=== PATIENT | female | born 1970 | race African-American/Black ===

== ENCOUNTER 2016-08-18 14:25 | Inpatient (IN) | payer OTHER ==
[2016-08-18 18:07] VITALS: BMI 27.4
--- NOTE | 2016-08-18 19:52 | HP ---
COWS - Scale Resting Pulse: 0= NE 80 or Below Sweatin=Flushed/Facial Moisture Restless Observation: 3= Extraneous Movement Pupil Size: 2= Moderately Dilated Bone or Joint Aches: 2= Severe Diffuse Aches Runny Nose/ Eye Tearin= Runny Nose/Eyes GI Upset > 30mins: 3= Vomiting/Diarrhea Tremor Observation: 2= Slight Tremor Visible Yawning Observation: 2= >3x During Session Anxiety or Irritability: 2=Irritable/Anxious Goose Flesh Skin: 0=Smooth Skin COWS Score: 20 CIWA Score - CIWA Score Nausea/Vomitin Muscle Tremors: 3 Anxiety: 3 Agitation: 3 Paroxysmal Sweats: 2 Orientation: 0-Oriented Tacttile Disturbances: 2-Mild Itch/Numbness/Burn Auditory Disturbances: 2-Mild Harshness/Frighten Visual Disturbances: 2-Mild Sensitivity Headache: 2-Mild CIWA-Ar Total Score: 22 Admission ROS BHS - HPI Chief Complaint: I NEED HELP TO STOP USING HEROIN,ALCOHOL,COCAINE AND MARIJUANA Allergies/Adverse Reactions: Allergies Allergy/AdvReac Type Severity Reaction Status Date / Time No Known Allergies Allergy Verified 08/18/16 19:12 History of Present Illness: THIS 46 YEARS OLD FEMALE WITH HEROIN,ALCOHOL,COCAINE AND MARIJUANA DEPENDENCE, WITHDRAWAL SYMPTOM.,LAST DETOX 06/01/15 TO 06/06/15 NICOTINE DEPENDENCE WEIGHT LOSS PTSD LONGEST PERIOD OF SOBRIETY 5 YEARS Exam Limitations: No Limitations - Ebola screening Have you traveled outside of the country in the last 21 days: No Have you had contact with anyone from an Ebola affected area: No Have you been sick,other than usual withdrawal symptoms: No Do you have a fever: No - Review of Systems Constitutional: Chills, Diaphoresis, Loss of Appetite, Malaise, Night Sweats, Changes in sleep, Weakness, Unintentional Wgt. Loss EENT: reports: Tearing, Nose Congestion Respiratory: reports: No Symptoms reported Cardiac: reports: Palpitations GI: reports: Diarrhea, Nausea, Vomiting, Abdominal cramping : reports: No Symptoms Reported Musculoskeletal: reports: Back Pain, Joint Pain, Muscle Pain, Joint Stiffness Integumentary: reports: Dryness Neuro: reports: Headache, Tremors Endocrine: reports: No Symptoms Reported Hematology: reports: No Symptoms Reported Psychiatric: reports: No Sypmtoms Reported, Judgement Intact, Mood/Affect Appropiate, Orientated x3 Other Systems: Reviewed and Negative Patient History - Patient Medical History Hx Anemia: No Hx Asthma: No Hx Chronic Obstructive Pulmonary Disease (COPD): No Hx Cancer: No Hx Cardiac Disorders: No Hx Congestive Heart Failure: No Hx Hypertension: No Hx Hypercholesterolemia: No Hx Pacemaker: No HX Cerebrovascular Accident: No Hx Seizures: No Hx Dementia: No Hx Diabetes: No Hx Gastrointestinal Disorders: No Hx Liver Disease: No Hx Genitourinary Disorders: No Hx Sexually Transmitted Disorders: No Hx Renal Disease (ESRD): No Hx Thyroid Disease: No Hx Human Immunodeficiency Virus (HIV): No (negative LAST 06/08) Hx Hepatitis C: No Hx Depression: Yes Hx Suicide Attempt: No Hx Bipolar Disorder: Yes Hx Schizophrenia: No Other Medical History: NO SUICIDAL,NO HOMICIDAL - Patient Surgical History Past Surgical History: No Hx Neurologic Surgery: No Hx Cataract Extraction: No Hx Cardiac Surgery: No Hx Lung Surgery: No Hx Breast Surgery: No Hx Breast Biopsy: No Hx Abdominal Surgery: No Hx Appendectomy: No Hx Cholecystectomy: No Hx Genitourinary Surgery: No Hx Section: No Hx Orthopedic Surgery: No Anesthesia Reaction: No - PPD History Previous Implant?: Yes Documented Results: Negative w/o proof Implanted On Prior R Admission?: Yes Date: 06/03/15 PPD to be Administered?: Yes - Reproductive History Patient is a Female of Child Bearing Age (11 -55 yrs old): Yes Last Menstrual Period: 12/30/15 Patient : No - Smoking Cessation Smoking history: Current every day smoker Have you smoked in the past 12 months: Yes Aproximately how many cigarettes per day: 10 Cigars Per Day: 0 Hx Chewing Tobacco Use: No Initiated information on smoking cessation: Yes 'Breaking Loose' booklet given: 08/18/16 - Substance & Tx. History Hx Alcohol Use: Yes Hx Substance Use: Yes Substance Use Type: Alcohol, Cocaine, Heroin, Marijuana - Substances Abused Heroin Route: Injection Frequency: Daily Amount used: 12 BAGS Age of first use: 28 Date of Last Use: 08/18/16 Alcohol Route: Oral Frequency: Daily Amount used: 48 OZ BEER Age of first use: 15 Date of Last Use: 08/17/16 Cocaine Route: Smoking Frequency: 1-2 times per week Amount used: $20 Age of first use: 28 Date of Last Use: 08/17/16 Marijuana/Hashish Route: Smoking Frequency: 1-3 times last 30 days Amount used: 1 JOINT Age of first use: 14 Date of Last Use: 08/17/16 Family Disease History - Family Disease History Family Disease History: Heart Disease: Grandparent, Mother, [place]: Grandparent, Other: Father () Admission Physical Exam [facility] - Vital Signs Vital Signs: Vital Signs - 24 hr 08/18/16 18:05 Temperature 97.9 F Pulse Rate 74 Respiratory 18 Rate Blood Pressure 128/76 - Physical General Appearance: Yes: Moderate Distress, Tremorous, Irritable, Sweating, Anxious HEENTM: Yes: Normal ENT Inspection, Pharynx Normal, Nasal Congestion Respiratory: Yes: Lungs Clear, Normal Breath Sounds, No Respiratory Distress Neck: Yes: Within Normal Limits, Supple, Trachea in good position Breast: Yes: Breast Exam Deferred Cardiology: Yes: Within Normal Limits, Regular Rhythm, Regular Rate, S1, S2 Abdominal: Yes: Within Normal Limits, Normal Bowel Sounds, Non Tender, Flat, Soft Genitourinary: Yes: Within Normal Limits Back: Yes: Muscle Spasm Musculoskeletal: Yes: Back pain, Joint Stiffness, Muscle Pain Extremities: Yes: Within Normal Limits, Normal Inspection, Normal Range of Motion, Tremors Neurological: Yes: Within Normal Limits, retail team member II-XII NML intact, Fully Oriented, Alert, Motor Strength 5/5 Integumentary: Yes: Dry Lymphatic: Yes: Within Normal Limits - Diagnostic (1) Alcohol dependence with uncomplicated withdrawal Current Visit: No Status: Chronic (2) Bipolar II disorder Current Visit: No Status: Chronic (3) Cannabis dependence Current Visit: No Status: Chronic (4) Cocaine dependence Current Visit: No Status: Chronic (5) Nicotine dependence Current Visit: No Status: Chronic (6) Opioid dependence with withdrawal Current Visit: No Status: Chronic (7) Weight decreased Current Visit: No Status: Chronic (8) Bipolar disorder Current Visit: Yes Status: Acute Cleared for Admission [facility] - Detox or Rehab [facility] Level of Care: Medically Managed Detox Regimen/Protocol: Methadone/Librium [facility] Breath Alcohol Content Breath Alcohol Content: 0 Urine Pregancy Test - Result Urine Test Results: Negative- NO Line Present Urine Drug Screen - Results Drug Screen Negative: No Urine Drug Screen Results: THC-Marijuana, IVÁN-Cocaine, OPI-Opiates
[2016-08-18] MEDS ORDERED: guaiFENesin/D-METHORPHAN HB 10 ML UNIT-DOSE CUPS PO PRN (20:06)
[2016-08-18] MEDS ORDERED: METHADONE HCL 10 MG TABLET (FOR DETOX USE ONLY) PO ONE ×2 (20:06→23:00)
[2016-08-18] MEDS ORDERED: LOPERAMIDE HCL 2 MG CAPSULE PO PRN (20:06)
[2016-08-18] MEDS ORDERED: P-EPHED 60MG/TRIPROLIDI 2.5MG TABLET PO PRN (20:06)
[2016-08-18] MEDS ORDERED: ACETAMINOPHEN 325 MG TABLET (FP) PO PRN (20:06)
[2016-08-18] MEDS ORDERED: NICOTINE POLACRILEX 2 MG GUM BUC PRN (20:06)
[2016-08-18] MEDS ORDERED: MAG HYDROX/AL HYDROX/SIMETH 30 ML UNIT-DOSE CUP PO PRN (20:06)
[2016-08-18] MEDS ORDERED: diphenhydrAMINE HCL 50 MG CAPSULE PO PRN (20:06)
[2016-08-18] MEDS ORDERED: MAGNESIUM CITRATE 300 ML BOTTLE PO PRN (20:06)
[2016-08-18] MEDS ORDERED: MAGNESIUM HYDROX 2400MG/30ML ORAL SUSPENSION 30 ML CUP PO PRN (20:06)
[2016-08-18] MEDS ORDERED: IBUPROFEN 400 MG TABLET (FP) PO PRN (20:06)
[2016-08-18] MEDS ORDERED: chlordiazePOXIDE HCL 25 MG CAPSULE PO ONE (20:06)
[2016-08-18] MEDS ORDERED: chlordiazePOXIDE HCL 25 MG CAPSULE PO PRN (20:06)
[2016-08-18] MEDS ORDERED: MENTHOL/PHENOL 1 EACH UD MM PRN (20:06)
[2016-08-18] MEDS ORDERED: hydrOXYzine PAMOATE 25 MG CAPSULE (FP) PO PRN (20:06)
[2016-08-18] MEDS: NICOTINE 21 MG/24 HOURS TOPICAL PATCH TD SCH (21:51)
[2016-08-18] MEDS: chlordiazePOXIDE HCL 25 MG CAPSULE PO SCH (22:28)
[2016-08-18] MEDS: cloNIDine HCL 0.1 MG TABLET PO SCH (22:29)
[2016-08-18] MEDS: THIAMINE HCL 100 MG TABLET (FP) PO SCH (22:29)
[2016-08-19] MEDS: chlordiazePOXIDE HCL 25 MG CAPSULE PO SCH ×4 (05:50→22:54)
[2016-08-19] MEDS ORDERED: METHADONE HCL 10 MG TABLET (FOR DETOX USE ONLY) PO SCH (10:00)
[2016-08-19 10:26] LABS: MCH 28.8 pg (25.7-33.7); MCHC 32.5 g/dl (32.0-36.0); MEAN CELL VOLUME 88.5 fl (80-96); MEAN PLT VOLUME 9.8 fl (7.5-11.1); PLATELET COUNT 195 K/MM3 (134-434); RDW 14.5 % (11.6-15.6)
[2016-08-19] MEDS: PRENATAL VITAMINS W/ FOLIC ACID TABLET (FP) PO SCH (10:46)
[2016-08-19] MEDS: NICOTINE 21 MG/24 HOURS TOPICAL PATCH TD SCH (10:47)
[2016-08-19] MEDS: cloNIDine HCL 0.1 MG TABLET PO SCH ×2 (10:52→22:53)
[2016-08-19 11:09] LABS: ALBUMIN 2.9 g/dl (3.4-5.0); BILIRUBIN,TOTAL 0.3 mg/dL (0.2-1.0); CALCIUM 8.7 mg/dL (8.5-10.1); TOT PROT 6.1 g/dl (6.4-8.2)
--- NOTE | 2016-08-19 11:51 | PN ---
[facility] CIWA - CIWA Score Nausea/Vomitin Muscle Tremors: 2 Anxiety: 2 Agitation: 2 Paroxysmal Sweats: 3 Orientation: 0-Oriented Tacttile Disturbances: 1-Very Mild Itch/Numbness Auditory Disturbances: 0-None Visual Disturbances: 0-None Headache: 0-None Present CIWA-Ar Total Score: 12 BHS COWS - Scale Resting Pulse: 0= [place] 80 or Below Sweatin=Flushed/Facial Moisture Restless Observation: 1= Difficult to Sit Still Pupil Size: 1= Pupils >than Normal Bone or Joint Aches: 1= Mild Discomfort Runny Nose/ Eye Tearin= Nasal Congestion GI Upset > 30mins: 1= Stomach Cramp Tremor Observation of Outstretched Hands: 1= Tremor [place], Not Seen Yawning Observation: 0= None Anxiety or Irritability: 1=Feels Anxious/Irritable Goose Flesh Skin: 0=Smooth Skin COWS Score: 9 BHS Progress Note (SOAP) Subjective: tired , depressed, interrupted sleep, sweats, Objective: 08/19/16 11:50 Vital Signs Temperature 98.6 F 08/19/16 10:20 Pulse Rate 64 08/19/16 10:20 Respiratory Rate 18 08/19/16 10:20 Blood Pressure 96/61 08/19/16 10:20 O2 Sat by Pulse Oximetry (%) Laboratory Tests 08/19/16 08/19/16 08/19/16 07:00 07:00 07:00 WBC 6.0 D RBC 4.50 Hgb 13.0 Hct 39.8 MCV 88.5 MCHC 32.5 RDW 14.5 Plt Count 195 MPV 9.8 Sodium 144 Potassium 4.0 Chloride 108 H Carbon Dioxide 26 Anion Gap 10 BUN 11 Creatinine 1.0 Creat Clearance w eGFR 59.69 Random Glucose 161 H D Calcium 8.7 Total Bilirubin 0.3 AST 14 L D ALT 17 D Alkaline Phosphatase 48 Total Protein 6.1 L Albumin 2.9 L RPR Titer Nonreactive pt aox3 in nad lying in bed Assessment: 08/19/16 11:50 withdrawal sx depressed Plan: cont. detox increase fluids pysch f/up
--- NOTE | 2016-08-19 13:01 | CONSULT ---
[facility] Psychiatric Consult - Data Date of interview: 08/19/16 Admission source: [facility] Identifying data: Another admission to [facility] for this 46 y/o AA female seeking detox treatment for heroin,alcohol,cocaine and cannabis dependence.Patient is single,a mother of two,domiciled,currently unemployed and collecting unemployment benefits. Substance Abuse History: - Smoking Cessation. Smoking history: Current every day smoker. Have you smoked in the past 12 months: Yes. Aproximately how many cigarettes per day: 10. Cigars Per Day: 0. Hx Chewing Tobacco Use: No. Initiated information on smoking cessation: Yes. 'Breaking Loose' booklet given : 08/18/16. - Substance & Tx. History. Hx Alcohol Use: Yes. Hx Substance Use : Yes. Substance Use Type: Alcohol, Cocaine, Heroin, Marijuana. - Substances Abused. Heroin. Route: Injection. Frequency: Daily. Amount used: 12 BAGS. Age of first use: 28. Date of Last Use: 08/18/16. Alcohol. Route: Oral. Frequency: Daily. Amount used: 48 OZ BEER. Age of first use: 15. Date of Last Use: 08/17/16. Cocaine. Route: Smoking. Frequency: 1-2 times per week. Amount used: $20. Age of first use: 28. Date of Last Use: 08/17/16. * * Marijuana/Hashish. Route: Smoking. Frequency: 1-3 times last 30 days. Amount used: 1 JOINT. Age of first use: 14. Date of Last Use: 08/17/16. Confirmed by the patient. Medical History: Patient endorses good general health. Psychiatric History: No history of psychiatric hospitalizations.Diagnosed with Panic Disorder/PTSD.Followed at the [facility] ([facility]) on a regimen of seroquel 25 mg/hs + remeron 15 mg/hs + buspar 15 mg po bid.Ms Candelaria is eager to resume these medications.No history of suicide attempts. Physical/Sexual Abuse/Trauma History: Patient denies. Additional Comment: Urine Drug Screen Results: THC-Marijuana, IVÁN-Cocaine, OPI- Opiates.Noted. Mental Status Exam - Mental Status Exam Alert and Oriented to: Time, Place, Person Cognitive Function: Good Patient Appearance: Well Groomed Mood: Hopeful, Euthymic Affect: Appropriate, Normal Range Patient Behavior: Appropriate, Cooperative Speech Pattern: Clear, Appropriate Voice Loudness: Normal Thought Process: Goal Oriented Thought Disorder: Not Present Hallucinations: Denies Suicidal Ideation: Denies Homicidal Ideation: Denies Insight/Judgement: Poor Sleep: Fair (on hypnotic agents) Appetite: Good Muscle strength/Tone: Normal Gait/Station: Normal Psychiatric Findings - Problem List ([place] 1, 2,3) (1) Opioid dependence with withdrawal Current Visit: Yes Status: Acute (2) Alcohol dependence with uncomplicated withdrawal Current Visit: Yes Status: Acute (3) Cannabis dependence Current Visit: Yes Status: Acute (4) Cocaine dependence Current Visit: Yes Status: Acute (5) Nicotine dependence Current Visit: Yes Status: Acute (6) Panic disorder without agoraphobia Current Visit: Yes Status: Chronic - Initial Treatment Plan Initial Treatment Plan: Psychoeducation.Detoxification.Medications resumed as listed in Psychiatric History section.Side effects/benefits explained to patient.She agrees with careplan.Observation.
[2016-08-19] MEDS: CYCLOBENZAPRINE HCL 10 MG TABLET (FP) PO PRN (17:31)
[2016-08-19 20:26] LABS: URINE APPEARANCE CLEAR; URINE BILIRUBIN NEGATIVE (NEGATIVE); URINE BLOOD NEGATIVE (NEGATIVE); URINE COLOR YELLOW; URINE GLUCOSE (UA) NEGATIVE (NEGATIVE); URINE KETONE NEGATIVE (NEGATIVE); URINE LEUK ESTERASE NEGATIVE (NEGATIVE); URINE NITRITE NEGATIVE (NEGATIVE); URINE PROTEIN NEGATIVE (NEGATIVE); URINE UROBILINOGEN NEGATIVE E.U./dl (0.2-1.0)
[2016-08-19] MEDS: MIRTAZAPINE 15 MG TABLET (FP) PO SCH (22:27)
[2016-08-19] MEDS: THIAMINE HCL 100 MG TABLET (FP) PO SCH (22:28)
[2016-08-19] MEDS: QUEtiapine FUMARATE 25 MG TABLET (FP) PO SCH (22:54)
[2016-08-20] MEDS: chlordiazePOXIDE HCL 25 MG CAPSULE PO SCH ×3 (05:30→17:03)
[2016-08-20] MEDS: PRENATAL VITAMINS W/ FOLIC ACID TABLET (FP) PO SCH (10:47)
[2016-08-20] MEDS: METHADONE HCL 5 MG TABLET (FOR DETOX USE ONLY) PO SCH (10:47)
[2016-08-20] MEDS: cloNIDine HCL 0.1 MG TABLET PO SCH ×2 (10:48→22:46)
[2016-08-20] MEDS: CYCLOBENZAPRINE HCL 10 MG TABLET (FP) PO PRN ×2 (10:48→22:46)
[2016-08-20] MEDS: NICOTINE 21 MG/24 HOURS TOPICAL PATCH TD SCH ×2 (10:48→13:44)
--- NOTE | 2016-08-20 10:56 | PN ---
S CIWA - CIWA Score Nausea/Vomitin Muscle Tremors: 3 Anxiety: 3 Agitation: 3 Paroxysmal Sweats: 2 Orientation: 0-Oriented Tacttile Disturbances: 1-Very Mild Itch/Numbness Auditory Disturbances: 1-Very Mild Visual Disturbances: 1-Very Mild Sensitivity Headache: 2-Mild CIWA-Ar Total Score: 19 BHS COWS - Scale Resting Pulse: 0= [place] 80 or Below Sweatin= Chills/Flushing Restless Observation: 3= Extraneous Movement Pupil Size: 1= Pupils >than Normal Bone or Joint Aches: 2= Severe Diffuse Aches Runny Nose/ Eye Tearin= Runny Nose/Eyes GI Upset > 30mins: 3= Vomiting/Diarrhea Tremor Observation of Outstretched Hands: 1= Tremor [place], Not Seen Yawning Observation: 1= 1-2x During Session Anxiety or Irritability: 2=Irritable/Anxious Goose Flesh Skin: 0=Smooth Skin COWS Score: 16 S Progress Note (SOAP) Subjective: ALERT,IRRITABLE,ANXIOUS,INTERRUPTED SLEEP,PAIN IN THE BODY AND BACK Objective: 08/20/16 10:53 Vital Signs Temperature 97.9 F 08/20/16 10:16 Pulse Rate 61 08/20/16 10:16 Respiratory Rate 18 08/20/16 10:16 Blood Pressure 96/62 08/20/16 10:16 O2 Sat by Pulse Oximetry (%) 08/20/16 10:54 EKG NSR,INVERTED T IN 3,AVF NO CHEST PAIN,NO SOB,NO DIZZINESS Laboratory Last Values WBC 6.0 K/mm3 (4.0-10.0) D 08/19/16 07:00 RBC 4.50 M/mm3 (3.60-5.2) 08/19/16 07:00 Hgb 13.0 GM/dL (10.7-15.3) 08/19/16 07:00 Hct 39.8 % (32.4-45.2) 08/19/16 07:00 MCV 88.5 fl (80-96) 08/19/16 07:00 MCHC 32.5 g/dl (32.0-36.0) 08/19/16 07:00 RDW 14.5 % (11.6-15.6) 08/19/16 07:00 Plt Count 195 K/MM3 (134-434) 08/19/16 07:00 MPV 9.8 fl (7.5-11.1) 08/19/16 07:00 Sodium 144 mmol/L (136-145) 08/19/16 07:00 Potassium 4.0 mmol/L (3.5-5.1) 08/19/16 07:00 Chloride 108 mmol/L (98-107) H 08/19/16 07:00 Carbon Dioxide 26 mmol/L (21-32) 08/19/16 07:00 Anion Gap 10 (8-16) 08/19/16 07:00 BUN 11 mg/dL (7-18) 08/19/16 07:00 Creatinine 1.0 mg/dL (0.55-1.02) 08/19/16 07:00 Creat Clearance w eGFR 59.69 (>60) 08/19/16 07:00 Random Glucose 161 mg/dL (74-106) H D 08/19/16 07:00 Calcium 8.7 mg/dL (8.5-10.1) 08/19/16 07:00 Total Bilirubin 0.3 mg/dL (0.2-1.0) 08/19/16 07:00 AST 14 U/L (15-37) L D 08/19/16 07:00 ALT 17 U/L (12-78) D 08/19/16 07:00 Alkaline Phosphatase 48 U/L (45-117) 08/19/16 07:00 Total Protein 6.1 g/dl (6.4-8.2) L 08/19/16 07:00 Albumin 2.9 g/dl (3.4-5.0) L 08/19/16 07:00 Urine Color Yellow 08/19/16 19:30 Urine Appearance Clear 08/19/16 19:30 Urine pH 6.0 (5.0-8.0) 08/19/16 19:30 Ur Specific [place] 1.027 (1.001-1.035) 08/19/16 19:30 Urine Protein Negative (NEGATIVE) 08/19/16 19:30 Urine Glucose (UA) Negative (NEGATIVE) 08/19/16 19:30 Urine Ketones Negative (NEGATIVE) 08/19/16 19:30 Urine Blood Negative (NEGATIVE) 08/19/16 19:30 Urine Nitrite Negative (NEGATIVE) 08/19/16 19:30 Urine Bilirubin Negative (NEGATIVE) 08/19/16 19:30 Urine Urobilinogen Negative E.U./dl (0.2-1.0) 08/19/16 19:30 Ur Leukocyte Esterase Negative (NEGATIVE) 08/19/16 19:30 RPR Titer Nonreactive (NONREACTIVE) 08/19/16 07:00 Assessment: 08/20/16 10:55 WITHDRAWAL SYMPTOM Plan: CONTINUE DETOX,GLUCOSE 161 INITIAL,BGM MONITORING
--- NOTE | 2016-08-20 11:57 | EKG ---
Test Reason : Blood Pressure : / mmHG Vent. Rate : 071 BPM Atrial Rate : 071 BPM P-R Int : 124 ms QRS Dur : 070 ms QT Int : 386 ms P-R-T Axes : 064 039 -02 degrees QTc Int : 419 ms ECTOPIC ATRIAL RHYTHM NONSPECIFIC T WAVE ABNORMALITY ABNORMAL ECG NO PREVIOUS ECGS AVAILABLE Confirmed by ALMAZ RUSS MD ([id number]) on 08/20/2016 11:57:25 AM Referred By: Confirmed By:ALMAZ RUSS MD
[2016-08-20] MEDS: THIAMINE HCL 100 MG TABLET (FP) PO SCH (22:45)
[2016-08-20] MEDS: MIRTAZAPINE 15 MG TABLET (FP) PO SCH (22:46)
[2016-08-20] MEDS: QUEtiapine FUMARATE 25 MG TABLET (FP) PO SCH (22:46)
[2016-08-20] MEDS: chlordiazePOXIDE 5 MG CAPSULE PO SCH (22:46)
[2016-08-21] MEDS: chlordiazePOXIDE 5 MG CAPSULE PO SCH ×3 (05:21→17:45)
[2016-08-21] MEDS: PRENATAL VITAMINS W/ FOLIC ACID TABLET (FP) PO SCH (10:21)
[2016-08-21] MEDS: CYCLOBENZAPRINE HCL 10 MG TABLET (FP) PO PRN (10:22)
[2016-08-21] MEDS: cloNIDine HCL 0.1 MG TABLET PO SCH ×2 (10:22→22:59)
[2016-08-21] MEDS: NICOTINE 21 MG/24 HOURS TOPICAL PATCH TD SCH (10:22)
[2016-08-21] MEDS: METHADONE HCL 5 MG TABLET (FOR DETOX USE ONLY) PO SCH (10:22)
--- NOTE | 2016-08-21 10:48 | PN ---
BHS Progress Note (SOAP) Subjective: ALERT,IRRITABLE,ANXIOUS,INTERRUPTED SLEEP,PAIN IN THE BODY Objective: 08/21/16 10:47 Vital Signs Temperature 97.9 F 08/21/16 09:52 Pulse Rate 76 08/21/16 09:52 Respiratory Rate 18 08/21/16 09:52 Blood Pressure 103/64 08/21/16 09:52 O2 Sat by Pulse Oximetry (%) Assessment: 08/21/16 10:47 WITHDRAWAL SYMPTOM Plan: CONTINUE DETOX
[2016-08-21] MEDS: QUEtiapine FUMARATE 25 MG TABLET (FP) PO SCH (22:31)
[2016-08-21] MEDS: MIRTAZAPINE 15 MG TABLET (FP) PO SCH (22:31)
[2016-08-21] MEDS: THIAMINE HCL 100 MG TABLET (FP) PO SCH (22:32)
[2016-08-21] MEDS: chlordiazePOXIDE HCL 10 MG CAPSULE PO SCH (23:00)
[2016-08-22] MEDS: chlordiazePOXIDE HCL 10 MG CAPSULE PO SCH ×3 (04:55→17:34)
[2016-08-22] MEDS ORDERED: METHADONE HCL 10 MG TABLET (FOR DETOX USE ONLY) PO SCH (10:00)
[2016-08-22] MEDS: PRENATAL VITAMINS W/ FOLIC ACID TABLET (FP) PO SCH (10:29)
[2016-08-22] MEDS: NICOTINE 21 MG/24 HOURS TOPICAL PATCH TD SCH (10:30)
[2016-08-22] MEDS: CYCLOBENZAPRINE HCL 10 MG TABLET (FP) PO PRN ×2 (10:30→22:36)
[2016-08-22] MEDS: cloNIDine HCL 0.1 MG TABLET PO SCH ×2 (10:30→23:04)
--- NOTE | 2016-08-22 11:47 | PN ---
S Progress Note (SOAP) Subjective: ALERT,IRRITABLE,ANXIOUS,INTERRUPTED SLEEP Objective: 08/22/16 11:46 Vital Signs Temperature 98.6 F 08/22/16 10:42 Pulse Rate 83 08/22/16 10:42 Respiratory Rate 20 08/22/16 10:42 Blood Pressure 104/68 08/22/16 10:42 O2 Sat by Pulse Oximetry (%) Assessment: 08/22/16 11:46 WITHDRAWAL SYMPTOM Plan: CONTINUE DETOX,DISCHARGE IN AM
[2016-08-22] MEDS: MIRTAZAPINE 15 MG TABLET (FP) PO SCH (22:36)
[2016-08-22] MEDS: QUEtiapine FUMARATE 25 MG TABLET (FP) PO SCH (22:37)
[2016-08-22] MEDS: THIAMINE HCL 100 MG TABLET (FP) PO SCH (22:37)
[2016-08-23] MEDS ORDERED: METHADONE HCL 5 MG TABLET (FOR DETOX USE ONLY) PO SCH (06:00)
--- NOTE | 2016-08-23 08:45 | DS ---
[facility] Detox Discharge Summary Admission Date: 08/18/16 - History Present History: Alcohol Dependence, Cannabis Dependence, Cocaine Dependence - Physical Exam Results Vital Signs: Vital Signs Temperature 98.2 F 08/23/16 06:00 Pulse Rate 67 08/23/16 06:00 Respiratory Rate 18 08/23/16 06:00 Blood Pressure 100/58 08/23/16 06:00 O2 Sat by Pulse Oximetry (%) - Treatment Hospital Course: Detox Protocol Followed, Detoxed Safely, Responded well, Discharged Condition Good - Medication Discharge Medications: Ambulatory Orders Cholecalciferol (Vitamin D3) [Vitamin D3] 50,000 unit PO WEEKLY 12/31/15 Vitamin E - 400 unit PO DAILY 12/31/15 Buspirone HCl [Buspar -] 15 mg PO BID 08/18/16 Mirtazapine [Remeron -] 15 mg PO HS 08/18/16 Quetiapine Fumarate [Seroquel -] 25 mg PO HS 08/18/16 Buspirone HCl [Buspar -] 15 mg PO BID #30 tablet 08/19/16 Mirtazapine [Remeron -] 15 mg PO HS #30 tablet 08/19/16 Quetiapine Fumarate [Seroquel -] 25 mg PO HS #30 tablet 08/19/16 - Diagnosis (1) Alcohol dependence with uncomplicated withdrawal Current Visit: Yes Status: Chronic (2) Bipolar disorder Current Visit: Yes Status: Chronic Qualifiers: Most recent bipolar episode type: most recent episode unspecified type (3) Cannabis dependence Current Visit: Yes Status: Chronic (4) Cocaine dependence Current Visit: Yes Status: Chronic Qualifiers: Complication of substance-induced condition: with unspecified complication (5) Nicotine dependence Current Visit: Yes Status: Chronic Qualifiers: Nicotine product type: cigarettes Substance use status: uncomplicated Qualified Code(s): F17.210 - Nicotine dependence, cigarettes, uncomplicated (6) Opioid dependence with withdrawal Current Visit: Yes Status: Acute (7) Bipolar II disorder Current Visit: Yes Status: Chronic - AMA Did Patient Leave Against Medical Advice: No
[2016-08-23 10:13] VITALS: BP 120/79; PULSE 80; TEMP 99.9
== END 2016-08-23 09:30 | disposition home or self-care (01) | DRG 897 ==
LOC: YASAS 14:25 → Y6N 18:59
PROVIDERS: ADMIT Internal Medicine Addiction Medicine; ATTEND Internal Medicine Addiction Medicine
PROC: HZ2ZZZZ Detoxification Services for Substance Abuse Treatment (ICD-10-PCS; principal; 2016-08-23)
DX: F11.23 Opioid dependence with withdrawal (principal); F14.20 Cocaine dependence, uncomplicated; F31.81 Bipolar II disorder; F10.230 Alcohol dependence with withdrawal, uncomplicated; F12.20 Cannabis dependence, uncomplicated; F17.210 Nicotine dependence, cigarettes, uncomplicated; F43.10 Post-traumatic stress disorder, unspecified; F41.0 Panic disorder [episodic paroxysmal anxiety]; R63.4 Abnormal weight loss; Z68.27 Body mass index [BMI] 27.0-27.9, adult
CPT/HCPCS: 36415; 80053; 81003; 85027; 86593; 93005; 93010

== ENCOUNTER 2016-10-19 22:44 | Inpatient (IN) | payer OTHER ==
[2016-10-19] MEDS ORDERED: METHADONE HCL 10 MG TABLET (FOR DETOX USE ONLY) PO ONE ×2 (23:00→23:22)
[2016-10-19 23:12] VITALS: BMI 27.4
--- NOTE | 2016-10-19 23:18 | HP ---
COWS - Scale Resting Pulse: 1= [place] 81-100 Sweatin= Chills/Flushing Restless Observation: 3= Extraneous Movement Pupil Size: 0= Normal to Room Light Bone or Joint Aches: 2= Severe Diffuse Aches Runny Nose/ Eye Tearin= Runny Nose/Eyes GI Upset > 30mins: 1= Stomach Cramp Tremor Observation: 2= Slight Tremor Visible Yawning Observation: 0= None Anxiety or Irritability: 2=Irritable/Anxious Goose Flesh Skin: 0=Smooth Skin COWS Score: 14 Admission [facility] Chief Complaint: WITHDRAWAL SX Allergies/Adverse Reactions: Allergies Allergy/AdvReac Type Severity Reaction Status Date / Time No Known Allergies Allergy Verified 08/18/16 19:12 History of Present Illness: 46 YEARS OLD FEMALE WITH LONG HISTORY OF OPIOID NICOTINE DEPENDENCE HAS WEIGHT LOSS AND BIPOLAR II IS ADMITTED TO DETOX Exam Limitations: No Limitations - Ebola screening Have you traveled outside of the country in the last 21 days: No (N) Have you had contact with anyone from an Ebola affected area: No Have you been sick,other than usual withdrawal symptoms: No Do you have a fever: No - Review of Systems Constitutional: Chills, Loss of Appetite, Changes in sleep, Unintentional Wgt. Loss, Unexplained wgt Loss EENT: reports: No Symptoms Reported Respiratory: reports: No Symptoms reported Cardiac: reports: No Symptoms Reported GI: reports: Nausea, Poor Appetite, Poor Fluid Intake, Indigestion, Abdominal cramping : reports: No Symptoms Reported Musculoskeletal: reports: Back Pain, Joint Pain, Muscle Pain, Neck Pain Integumentary: reports: Change in Color (HANDS INNER ELBOWS), Rash (FACE) Neuro: reports: Tremors Endocrine: reports: No Symptoms Reported Hematology: reports: No Symptoms Reported Psychiatric: reports: Judgement Intact, Orientated x3, Anxious, Depressed Other Systems: Reviewed and Negative Patient History - Patient Medical History Hx Anemia: No Hx Asthma: No Hx Chronic Obstructive Pulmonary Disease (COPD): No Hx Cancer: No Hx Cardiac Disorders: No Hx Congestive Heart Failure: No Hx Hypertension: No Hx Hypercholesterolemia: No Hx Pacemaker: No HX Cerebrovascular Accident: No Hx Seizures: No Hx Dementia: No Hx Diabetes: No Hx Gastrointestinal Disorders: No Hx Liver Disease: No Hx Genitourinary Disorders: No Hx Sexually Transmitted Disorders: No Hx Renal Disease (ESRD): No Hx Thyroid Disease: No Hx Human Immunodeficiency Virus (HIV): No (negative LAST 06/08) Hx Hepatitis C: No Hx Depression: No Hx Suicide Attempt: No Hx Bipolar Disorder: Yes Hx Schizophrenia: No - Patient Surgical History Past Surgical History: No Hx Neurologic Surgery: No Hx Cataract Extraction: No Hx Cardiac Surgery: No Hx Lung Surgery: No Hx Breast Surgery: No Hx Breast Biopsy: No Hx Abdominal Surgery: No Hx Appendectomy: No Hx Cholecystectomy: No Hx Genitourinary Surgery: No Hx Section: No Hx Orthopedic Surgery: No - PPD History Previous Implant?: Yes Documented Results: Negative w/o proof Implanted On Prior [facility] Admission?: Yes Date: 08/20/16 PPD to be Administered?: No - Reproductive History Patient is a Female of Child Bearing Age (11 -55 yrs old): Yes Last Menstrual Period: 01/15/15 Patient : No - Smoking Cessation Smoking history: Current every day smoker Have you smoked in the past 12 months: Yes Aproximately how many cigarettes per day: 10 Cigars Per Day: 0 Hx Chewing Tobacco Use: No Initiated information on smoking cessation: Yes 'Breaking Loose' booklet given: 10/19/16 - Substance & Tx. History Hx Alcohol Use: No Hx Substance Use: Yes Substance Use Type: Opiates Hx Substance Use Treatment: Yes - Substances Abused Heroin Route: Injection Frequency: Daily Amount used: 12 BAGS Age of first use: 32 Date of Last Use: 10/19/16 Family Disease History - Family Disease History Family Disease History: Heart Disease: Grandparent, Mother, [place]: Grandparent, Other: Father () Admission Physical Exam S - Vital Signs Vital Signs: Vital Signs - 24 hr 10/19/16 23:09 Temperature 98.1 F Pulse Rate 93 H Respiratory 20 Rate Blood Pressure 134/74 - Physical General Appearance: Yes: Appropriately Dressed, Mild Distress, Tremorous, Irritable, Sweating, Anxious HEENTM: Yes: Hearing grossly Normal, Normal ENT Inspection, Normocephalic, Normal Voice Respiratory: Yes: Chest Non-Tender, Lungs Clear, Normal Breath Sounds, No Respiratory Distress, No Accessory Muscle Use Neck: Yes: Supple, Trachea in good position Breast: Yes: Breasts Symetrical Cardiology: Yes: Regular Rhythm, S1, S2, Tachycardia Abdominal: Yes: Non Tender, Soft Genitourinary: Yes: Within Normal Limits Back: Yes: Normal Inspection Musculoskeletal: Yes: full range of Motion, Gait Steady Extremities: Yes: Normal Range of Motion, Non-Tender, Tremors Neurological: Yes: Fully Oriented, Alert, Motor Strength 5/5, Normal Response, Depressed Affect Integumentary: Yes: Warm, Track Schumacher Lymphatic: Yes: Within Normal Limits - Diagnostic (1) Benign skin lesion of face Current Visit: Yes Status: Chronic (2) Bipolar II disorder Current Visit: Yes Status: Resolved (3) Nicotine dependence Current Visit: Yes Status: Acute Qualifiers: Nicotine product type: cigarettes Substance use status: in withdrawal Qualified Code(s): F17.213 - Nicotine dependence, cigarettes, with withdrawal Cleared for Admission [facility] - Detox or Rehab [facility] Level of Care: Medically Managed Detox Regimen/Protocol: Methadone [facility] Breath Alcohol Content Breath Alcohol Content: 0 Urine Pregancy Test - Result Urine Test Results: Negative- NO Line Present Urine Drug Screen - Control Is Test Valid: Yes - Results Drug Screen Negative: No Urine Drug Screen Results: THC-Marijuana, IVÁN-Cocaine, OPI-Opiates
[2016-10-19] MEDS ORDERED: MAGNESIUM CITRATE 300 ML BOTTLE PO PRN (23:22)
[2016-10-19] MEDS ORDERED: NICOTINE POLACRILEX 2 MG GUM BC PRN (23:22)
[2016-10-19] MEDS ORDERED: P-EPHED 60MG/TRIPROLIDI 2.5MG TABLET PO PRN (23:22)
[2016-10-19] MEDS ORDERED: MENTHOL/PHENOL 1 EACH UD MM PRN (23:22)
[2016-10-19] MEDS ORDERED: diazePAM 5 MG TABLET PO PRN (23:22)
[2016-10-19] MEDS ORDERED: LOPERAMIDE HCL 2 MG CAPSULE PO PRN (23:22)
[2016-10-19] MEDS ORDERED: ACETAMINOPHEN 325 MG TABLET (FP) PO PRN (23:22)
[2016-10-19] MEDS ORDERED: MAGNESIUM HYDROX 2400MG/30ML ORAL SUSPENSION 30 ML CUP PO PRN (23:22)
[2016-10-19] MEDS ORDERED: MAG HYDROX/AL HYDROX/SIMETH 30 ML UNIT-DOSE CUP PO PRN (23:22)
[2016-10-19] MEDS ORDERED: NICOTINE 14 MG/24 HOURS TOPICAL PATCH TD PRN (23:22)
[2016-10-19] MEDS ORDERED: guaiFENesin/D-METHORPHAN HB 10 ML UNIT-DOSE CUPS PO PRN (23:22)
[2016-10-19] MEDS ORDERED: COLLOIDAL OATMEAL 1 BAR EACH TP PRN (23:29)
[2016-10-20] MEDS ORDERED: METHADONE HCL 10 MG TABLET (FOR DETOX USE ONLY) PO ONE ×4 (00:25→23:00)
[2016-10-20] MEDS ORDERED: diazePAM 5 MG TABLET PO PRN (00:25)
[2016-10-20] MEDS: diphenhydrAMINE HCL 50 MG CAPSULE PO PRN ×2 (01:14→01:32)
--- NOTE | 2016-10-20 10:02 | PN ---
BHS COWS - Scale Resting Pulse: 0= [place] 80 or Below Sweatin=Flushed/Facial Moisture Restless Observation: 1= Difficult to Sit Still Pupil Size: 0= Normal to Room Light Bone or Joint Aches: 2= Severe Diffuse Aches Runny Nose/ Eye Tearin= Nasal Congestion GI Upset > 30mins: 2= Nausea/Diarrhea Tremor Observation of Outstretched Hands: 2= Slight Tremor Visible Yawning Observation: 2= >3x During Session Anxiety or Irritability: 2=Irritable/Anxious Goose Flesh Skin: 0=Smooth Skin COWS Score: 14 BHS Progress Note (SOAP) Subjective: stomach ache sweats body aches shakes sweats Objective: 10/20/16 10:02 Vital Signs Temperature 99.3 F 10/20/16 06:00 Pulse Rate 88 10/20/16 06:00 Respiratory Rate 18 10/20/16 06:00 Blood Pressure 127/61 10/20/16 06:00 O2 Sat by Pulse Oximetry (%) labs pending awake/alert ambulating no acute distress Assessment: 10/20/16 10:02 withdrawal sx Plan: continue detox increase fluids labs pending
[2016-10-20 10:13] LABS: ALBUMIN 2.9 g/dl (3.4-5.0); ANION GAP 5 (8-16); CALCIUM 8.9 mg/dL (8.5-10.1); CO2 31 mmol/L (21-32); CREATININE 0.9 mg/dL (0.55-1.02); GLUCOSE,RANDOM 114 mg/dL (74-106)
[2016-10-20] MEDS: BACITRACIN 0.9 GM PACKET TP SCH (10:14)
[2016-10-20] MEDS: PRENATAL VITAMINS W/ FOLIC ACID TABLET (FP) PO SCH (10:14)
[2016-10-20] MEDS: RANITIDINE HCL 150 MG TABLET (FP) PO SCH ×2 (10:14→22:17)
[2016-10-20 10:15] LABS: ALK PHOS 53 U/L (45-117); BILIRUBIN,TOTAL 0.3 mg/dL (0.2-1.0); MCH 28.8 pg (25.7-33.7); MCHC 33.1 g/dl (32.0-36.0); MEAN CELL VOLUME 87.2 fl (80-96); MEAN PLT VOLUME 9.8 fl (7.5-11.1); PLATELET COUNT 193 K/MM3 (134-434); RDW 14.4 % (11.6-15.6); SGOT/AST 14 U/L (15-37); SGPT/ALT 16 U/L (12-78); WHITE BLOOD COUNT 7.2 K/mm3 (4.0-10.0)
--- NOTE | 2016-10-20 11:59 | EKG ---
Test Reason : Blood Pressure : / mmHG Vent. Rate : 076 BPM Atrial Rate : 076 BPM P-R Int : 118 ms QRS Dur : 076 ms QT Int : 368 ms P-R-T Axes : 059 034 011 degrees QTc Int : 414 ms NORMAL SINUS RHYTHM NONSPECIFIC T WAVE ABNORMALITY ABNORMAL ECG WHEN COMPARED WITH ECG OF 18-AUG-2016 20:11, NO SIGNIFICANT CHANGE WAS FOUND Confirmed by JOSE CERNA MD ([id number]) on 10/20/2016 11:59:10 AM Referred By: Confirmed By:JOSE CERNA MD
[2016-10-20] MEDS ORDERED: PNEUMOCOCCAL 23 VACCINE 0.5 ML VIAL IM ONE (12:00)
--- NOTE | 2016-10-20 16:41 | CONSULT ---
[facility] Psychiatric Consult - Data Date of interview: 10/20/16 Admission source: [facility] Identifying data: Readmission to [facility] for this 46 y/o AA female seeking detox treatment for heroin,cocaine and cannabis dependence.Patient is single,a mother of two,domiciled,currently unemployed and reportedly deprived of any source of income. Substance Abuse History: - Smoking Cessation. Smoking history: Current every day smoker. Have you smoked in the past 12 months: Yes. Aproximately how many cigarettes per day: 10. Cigars Per Day: 0. Hx Chewing Tobacco Use: No. Initiated information on smoking cessation: Yes. 'Breaking Loose' booklet given : 10/19/16. - Substance & Tx. History. Hx Alcohol Use: No. Hx Substance Use: Yes. Substance Use Type: Opiates. Hx Substance Use Treatment: Yes. - Substances Abused. Heroin. Route: Injection. Frequency: Daily. Amount used: 12 BAGS. Age of first use: 32. Date of Last Use: 10/19/16. Confirmed by patient. Medical History: Patient endorses good general health. Psychiatric History: Patient denies history of psychiatric hospitalizations.She states that she is diagnosed with MDD,Bipolar Disorder and PTSD.Patient is still followed at the [facility] ([facility]) and maintained on a regimen of seroquel 25 mg/hs + remeron 15 mg/hs + buspar 15 mg po bid.Last took these medications weeks ago (self-report).Ms Candelaria denies history of suicide attempts. Physical/Sexual Abuse/Trauma History: Patient denies history of abuse. Additional Comment: Urine Drug Screen Results: THC-Marijuana, IVÁN-Cocaine, OPI- Opiates.Noted. Mental Status Exam - Mental Status Exam Alert and Oriented to: Time, Place, Person Cognitive Function: Good Patient Appearance: Well Groomed Mood: Hostile (at beginning of interview ; became more cooperative as the interview progressed), Irritable Patient Behavior: Sedated (very light sedation ; patient is conversant,clear and logical), Fatigued, Cooperative Speech Pattern: Clear, Appropriate (sensical and relevant) Voice Loudness: Normal Thought Process: Goal Oriented Thought Disorder: Not Present Hallucinations: Denies Suicidal Ideation: Denies Homicidal Ideation: Denies Insight/Judgement: Poor Sleep: Poorly, Difficulty falling asleep Appetite: Good (empty foodtray at bedside) Muscle strength/Tone: Normal Gait/Station: Normal (observed walking in room) Psychiatric Findings - Problem List ([place] 1, 2,3) (1) Opioid dependence with withdrawal Current Visit: Yes Status: Acute (2) Cannabis dependence Current Visit: Yes Status: Chronic (3) Cocaine dependence Current Visit: Yes Status: Chronic Qualifiers: Complication of substance-induced condition: with unspecified complication (4) Nicotine dependence Current Visit: Yes Status: Acute Qualifiers: Nicotine product type: cigarettes Substance use status: in withdrawal Qualified Code(s): F17.213 - Nicotine dependence, cigarettes, with withdrawal (5) Bipolar II disorder Current Visit: Yes Status: Chronic - Initial Treatment Plan Initial Treatment Plan: Psychoeducation.Detoxification in progress.Will hold medications (seroquel,remeron and buspirone) until further orders in view of staff's report of heavy sedation throughout the day (prior to this consult) .Patient is in agreement with this careplan.Observation.Pharmacy claims reviewed : scripts for remeron,buspar and seroquel issued on 08/19/16 @ [employer] by this science writer (on discharge from [facility]); no evidence of renewals.Patient admits to total non-adherence to [facility]PD care.
[2016-10-20] MEDS ORDERED: busPIRone HCL 10 MG TABLET (FP) PO SCH (22:00)
[2016-10-20] MEDS: THIAMINE HCL 100 MG TABLET (FP) PO SCH (22:17)
[2016-10-21] MEDS ORDERED: METHADONE HCL 5 MG TABLET (FOR DETOX USE ONLY) PO ONE (10:00)
[2016-10-21] MEDS ORDERED: METHADONE HCL 10 MG TABLET (FOR DETOX USE ONLY) PO ONE (10:00)
--- NOTE | 2016-10-21 10:08 | PN ---
S COWS - Scale Resting Pulse: 0= [place] 80 or Below Sweatin= Chills/Flushing Restless Observation: 3= Extraneous Movement Pupil Size: 1= Pupils >than Normal Bone or Joint Aches: 2= Severe Diffuse Aches Runny Nose/ Eye Tearin= Runny Nose/Eyes GI Upset > 30mins: 3= Vomiting/Diarrhea Tremor Observation of Outstretched Hands: 2= Slight Tremor Visible Yawning Observation: 1= 1-2x During Session Anxiety or Irritability: 2=Irritable/Anxious Goose Flesh Skin: 0=Smooth Skin COWS Score: 17 S Progress Note (SOAP) Subjective: ALERT,IRRITABLE,ANXIOUS,INTERRUPTED SLEEP,TREMOR,PAIN IN THE BODY AND BACK Objective: 10/21/16 10:06 Vital Signs Temperature 98.1 F 10/21/16 09:42 Pulse Rate 79 10/21/16 09:42 Respiratory Rate 16 10/21/16 09:42 Blood Pressure 145/76 10/21/16 09:42 O2 Sat by Pulse Oximetry (%) Laboratory Last Values WBC 7.2 K/mm3 (4.0-10.0) 10/20/16 07:00 RBC 4.44 M/mm3 (3.60-5.2) 10/20/16 07:00 Hgb 12.8 GM/dL (10.7-15.3) 10/20/16 07:00 Hct 38.7 % (32.4-45.2) 10/20/16 07:00 MCV 87.2 fl (80-96) 10/20/16 07:00 MCHC 33.1 g/dl (32.0-36.0) 10/20/16 07:00 RDW 14.4 % (11.6-15.6) 10/20/16 07:00 Plt Count 193 K/MM3 (134-434) 10/20/16 07:00 MPV 9.8 fl (7.5-11.1) 10/20/16 07:00 Sodium 142 mmol/L (136-145) 10/20/16 07:00 Potassium 4.4 mmol/L (3.5-5.1) 10/20/16 07:00 Chloride 106 mmol/L (98-107) 10/20/16 07:00 Carbon Dioxide 31 mmol/L (21-32) 10/20/16 07:00 Anion Gap 5 (8-16) L 10/20/16 07:00 BUN 10 mg/dL (7-18) 10/20/16 07:00 Creatinine 0.9 mg/dL (0.55-1.02) 10/20/16 07:00 Creat Clearance w eGFR > 60 (>60) 10/20/16 07:00 Random Glucose 114 mg/dL (74-106) H D 10/20/16 07:00 Calcium 8.9 mg/dL (8.5-10.1) 10/20/16 07:00 Total Bilirubin 0.3 mg/dL (0.2-1.0) 10/20/16 07:00 AST 14 U/L (15-37) L 10/20/16 07:00 ALT 16 U/L (12-78) 10/20/16 07:00 Alkaline Phosphatase 53 U/L (45-117) 10/20/16 07:00 Total Protein 6.0 g/dl (6.4-8.2) L 10/20/16 07:00 Albumin 2.9 g/dl (3.4-5.0) L 10/20/16 07:00 RPR Titer Nonreactive (NONREACTIVE) 10/20/16 07:00 Assessment: 10/21/16 10:07 WITHDRAWAL SYMPTOM Plan: CONTINUE DETOX,INITIAL GLUCOSE IS 114,FASTING GLUCOSE IN AM
[2016-10-21] MEDS: busPIRone HCL 10 MG TABLET (FP) PO SCH ×2 (10:17→22:09)
[2016-10-21] MEDS: RANITIDINE HCL 150 MG TABLET (FP) PO SCH ×2 (10:17→22:09)
[2016-10-21] MEDS: PRENATAL VITAMINS W/ FOLIC ACID TABLET (FP) PO SCH (10:17)
[2016-10-21] MEDS: BACITRACIN 0.9 GM PACKET TP SCH (10:17)
--- NOTE | 2016-10-21 10:27 | PN ---
Psychiatric Progress Note Vital Signs: Vital Signs Period Temp Pulse Resp BP Sys/Olvera Pulse Ox Last 24 Hr 97.4 F-99.1 F 57-79 16-18 123-145/67-76 Date of Session: 10/21/16 Chief Complaint:: Medications HPI: Patient reprots tasking prior to admission: Buspar 20mg po bid. Sweroquel 25mg po qhs. Remeron 15mg po qhs Current Medications: Active Medications Generic Name Dose Route Start Last Admin Trade Name Freq PRN Reason Stop Dose Admin Acetaminophen 650 mg 10/19/16 23:22 Tylenol - PO Q4H PRN FEVER OR PAIN Al Hydroxide/Mg Hydroxide 30 ml 10/19/16 23:22 Mylanta Oral Suspension - PO Q6H PRN DYSPEPSIA Bacitracin 0.9 gm 10/20/16 10:00 10/21/16 10:17 Bacitracin - TP 0.9 gm DAILY TENZIN Administration Buspirone HCl 20 mg 10/21/16 10:00 10/21/16 10:17 Buspar - PO 20 mg BID TENZIN Administration Colloidal Oatmeal 1 applic 10/19/16 23:29 10/21/16 10:18 Aveeno Soap - TP 1 applic DAILY PRN Administration HYGEINE Diazepam 10 mg 10/20/16 00:25 10/20/16 01:11 Valium - PO 10/23/16 00:24 10 mg Q4H PRN Administration WITHDRAWAL(CONT SUBST) Diphenhydramine HCl 50 mg 10/19/16 23:22 10/20/16 01:32 Benadryl - PO 50 mg HSMR1 PRN Administration INSOMNIA Eucalyptus/Menthol/Phenol/Sorbitol 1 each 10/19/16 23:22 Cepastat Lozenge - MM Q4H PRN SORE THROAT Guaifenesin 10 ml 10/19/16 23:22 Robitussin Dm - PO Q6H PRN COUGH Loperamide HCl 4 mg 10/19/16 23:22 Imodium - PO Q6H PRN DIARRHEA Magnesium Citrate 300 ml 10/19/16 23:22 Citroma - PO Q48H PRN CONSTIPATION Magnesium Hydroxide 30 ml 10/19/16 23:22 Milk Of Magnesia - PO DAILY PRN CONSTIPATION Methadone HCl 10 mg 10/24/16 10:00 Dolophine - PO 10/24/16 10:01 ONCE ONE Methadone HCl 15 mg 10/22/16 10:00 Dolophine - PO 10/22/16 10:01 ONCE ONE Methadone HCl 15 mg 10/23/16 10:00 Dolophine - PO 10/23/16 10:01 ONCE ONE Methadone HCl 5 mg 10/25/16 06:00 Dolophine - PO 10/25/16 06:01 ONCE@0600 ONE Mirtazapine 15 mg 10/21/16 22:00 Remeron - PO HS TENZIN Nicotine 14 mg 10/19/16 23:22 Nicoderm Patch - TD DAILY PRN WITHDRAWAL(CONT SUBST) Nicotine Polacrilex 2 mg 10/19/16 23:22 Nicorette Gum - BC Q2H PRN NICOTINE REPLACEMENT RX Multivit/Folic Acid/Iron 1 tab 10/20/16 10:00 10/21/16 10:17 Vitamins (Sjr) - PO 1 tab DAILY TENZIN Administration Pseudoephedrine/Triprolidine 1 combo 10/19/16 23:22 Actifed - PO TID PRN NASAL CONGESTION Quetiapine Fumarate 25 mg 10/21/16 22:00 Seroquel - PO HS TENZIN Ranitidine HCl 150 mg 10/20/16 10:00 10/21/16 10:17 Zantac - PO 150 mg BID TENZIN Administration Thiamine HCl 100 mg 10/20/16 22:00 10/20/16 22:17 Vitamin B1 - PO 100 mg HS TENZIN Administration Medication(s) Change(s): Buspar 20mg po bid. Sweroquel 25mg po qhs. Remeron 15mg po qhs Mental Status Exam - Mental Status Exam Alert and Oriented to: Person Cognitive Function: Fair Patient Appearance: Unkempt Mood: Anxious Affect: Mood Congruent Patient Behavior: Cooperative Speech Pattern: Delayed Voice Loudness: Mildly Soft/Quiet Thought Process: Circumstantial, Goal Oriented Thought Disorder: Being Controlled Hallucinations: Denies Suicidal Ideation: Denies Homicidal Ideation: Denies Insight/Judgement: Fair Sleep: Difficulty falling asleep Appetite: Weight loss Muscle strength/Tone: Mild Hypotonicity Gait/Station: Shuffling Additional Comments: Buspar 20mg po bid. Sweroquel 25mg po qhs. Remeron 15mg po qhs Psychiatric Treatment Plan - Problem List (1) Nicotine dependence Current Visit: Yes Qualifiers: Nicotine product type: cigarettes Substance use status: in withdrawal Qualified Code(s): F17.213 - Nicotine dependence, cigarettes, with withdrawal (2) Opioid dependence with withdrawal Current Visit: Yes (3) Alcohol dependence with uncomplicated withdrawal Current Visit: Yes (4) Cannabis dependence Current Visit: Yes (5) Cocaine dependence Current Visit: Yes Qualifiers: Complication of substance-induced condition: with unspecified complication (6) Bipolar disorder Current Visit: No Qualifiers: Most recent bipolar episode type: most recent episode unspecified type (7) Panic disorder without agoraphobia Current Visit: No Initial treatment plan: Buspar 20mg po bid. Sweroquel 25mg po qhs. Remeron 15mg po qhs
[2016-10-21] MEDS: QUEtiapine FUMARATE 25 MG TABLET (FP) PO SCH (22:09)
[2016-10-21] MEDS: THIAMINE HCL 100 MG TABLET (FP) PO SCH (22:11)
[2016-10-21] MEDS: MIRTAZAPINE 15 MG TABLET (FP) PO SCH (22:11)
--- NOTE | 2016-10-22 09:12 | PN ---
BHS Progress Note (SOAP) Subjective: ALERT,IRRITABLE,ANXIOUS,INTERRUPTED SLEEP,PAIN IN THE BODY AND BACK Objective: 10/22/16 09:10 10/22/16 09:11 Vital Signs Temperature 98.2 F 10/22/16 06:16 Pulse Rate 67 10/22/16 06:16 Respiratory Rate 16 10/22/16 06:16 Blood Pressure 93/58 10/22/16 06:16 O2 Sat by Pulse Oximetry (%) Assessment: 10/22/16 09:11 WITHDRAWAL SYMPTOM Plan: CONTINUE DETOX
[2016-10-22] MEDS ORDERED: METHADONE HCL 5 MG TABLET (FOR DETOX USE ONLY) PO ONE ×2 (10:00)
[2016-10-22] MEDS: PRENATAL VITAMINS W/ FOLIC ACID TABLET (FP) PO SCH (10:37)
[2016-10-22] MEDS: busPIRone HCL 10 MG TABLET (FP) PO SCH ×2 (10:37→23:03)
[2016-10-22] MEDS: BACITRACIN 0.9 GM PACKET TP SCH (10:37)
[2016-10-22] MEDS: RANITIDINE HCL 150 MG TABLET (FP) PO SCH ×2 (10:37→23:03)
[2016-10-22] MEDS: THIAMINE HCL 100 MG TABLET (FP) PO SCH (23:03)
[2016-10-22] MEDS: QUEtiapine FUMARATE 25 MG TABLET (FP) PO SCH (23:03)
[2016-10-22] MEDS: MIRTAZAPINE 15 MG TABLET (FP) PO SCH (23:03)
[2016-10-23] MEDS ORDERED: METHADONE HCL 5 MG TABLET (FOR DETOX USE ONLY) PO ONE (10:00)
[2016-10-23] MEDS ORDERED: METHADONE HCL 10 MG TABLET (FOR DETOX USE ONLY) PO ONE (10:00)
--- NOTE | 2016-10-23 10:25 | DS ---
[facility] Detox Discharge Summary Admission Date: 10/20/16 Discharge Date: 10/23/16 - History Present History: Alcohol Dependence, Cannabis Dependence, Cocaine Dependence, Opioid Dependence Pertinent Past History: Bipolar disorder - Physical Exam Results Vital Signs: Vital Signs Temperature 98.1 F 10/23/16 06:12 Pulse Rate 62 10/23/16 06:12 Respiratory Rate 16 10/23/16 06:12 Blood Pressure 109/76 10/23/16 06:12 O2 Sat by Pulse Oximetry (%) Pertinent Admission Physical Exam Findings: Withdrawal Sx. Laboratory Last Values WBC 7.2 K/mm3 (4.0-10.0) 10/20/16 07:00 RBC 4.44 M/mm3 (3.60-5.2) 10/20/16 07:00 Hgb 12.8 GM/dL (10.7-15.3) 10/20/16 07:00 Hct 38.7 % (32.4-45.2) 10/20/16 07:00 MCV 87.2 fl (80-96) 10/20/16 07:00 MCHC 33.1 g/dl (32.0-36.0) 10/20/16 07:00 RDW 14.4 % (11.6-15.6) 10/20/16 07:00 Plt Count 193 K/MM3 (134-434) 10/20/16 07:00 MPV 9.8 fl (7.5-11.1) 10/20/16 07:00 Sodium 142 mmol/L (136-145) 10/20/16 07:00 Potassium 4.4 mmol/L (3.5-5.1) 10/20/16 07:00 Chloride 106 mmol/L (98-107) 10/20/16 07:00 Carbon Dioxide 31 mmol/L (21-32) 10/20/16 07:00 Anion Gap 5 (8-16) L 10/20/16 07:00 BUN 10 mg/dL (7-18) 10/20/16 07:00 Creatinine 0.9 mg/dL (0.55-1.02) 10/20/16 07:00 Creat Clearance w eGFR > 60 (>60) 10/20/16 07:00 Random Glucose 114 mg/dL (74-106) H D 10/20/16 07:00 Fasting Glucose 94 mg/dL (70-105) 10/22/16 09:30 Calcium 8.9 mg/dL (8.5-10.1) 10/20/16 07:00 Total Bilirubin 0.3 mg/dL (0.2-1.0) 10/20/16 07:00 AST 14 U/L (15-37) L 10/20/16 07:00 ALT 16 U/L (12-78) 10/20/16 07:00 Alkaline Phosphatase 53 U/L (45-117) 10/20/16 07:00 Total Protein 6.0 g/dl (6.4-8.2) L 10/20/16 07:00 Albumin 2.9 g/dl (3.4-5.0) L 10/20/16 07:00 RPR Titer Nonreactive (NONREACTIVE) 10/20/16 07:00 labs noted - Treatment Patient has Accepted a Rehab Referral to: 12 Step meetings & [facility] - Medication Discharge Medications: Ambulatory Orders Cholecalciferol (Vitamin D3) [Vitamin D3] 50,000 unit PO WEEKLY 12/31/15 Buspirone HCl [Buspar -] 15 mg PO BID 08/18/16 Mirtazapine [Remeron -] 15 mg PO HS 08/18/16 Quetiapine Fumarate [Seroquel -] 25 mg PO HS 08/18/16 Buspirone HCl [Buspar -] 15 mg PO BID #30 tablet 08/19/16 Mirtazapine [Remeron -] 15 mg PO HS #30 tablet 08/19/16 Quetiapine Fumarate [Seroquel -] 25 mg PO HS #30 tablet 08/19/16 Buspirone HCl [Buspar -] 20 mg PO BID #120 tablet 10/21/16 Mirtazapine [Remeron -] 15 mg PO HS #30 tablet 10/21/16 Quetiapine Fumarate [Seroquel -] 25 mg PO HS #30 tablet 10/21/16 - Diagnosis (1) Nicotine dependence Current Visit: Yes Status: Acute Qualifiers: Nicotine product type: cigarettes Substance use status: in withdrawal Qualified Code(s): F17.213 - Nicotine dependence, cigarettes, with withdrawal (2) Opioid dependence with withdrawal Current Visit: Yes Status: Acute (3) Alcohol dependence with uncomplicated withdrawal Current Visit: Yes Status: Chronic (4) Bipolar II disorder Current Visit: Yes Status: Chronic (5) Cannabis dependence Current Visit: Yes Status: Chronic (6) Cocaine dependence Current Visit: Yes Status: Chronic Qualifiers: Substance use status: uncomplicated Qualified Code(s): F14.20 - Cocaine dependence, uncomplicated - AMA Did Patient Leave Against Medical Advice: Yes
[2016-10-23 11:02] VITALS: BP 108/73; PULSE 78; TEMP 98.4
[2016-10-24] MEDS ORDERED: METHADONE HCL 5 MG TABLET (FOR DETOX USE ONLY) PO ONE (06:00)
[2016-10-24] MEDS ORDERED: METHADONE HCL 10 MG TABLET (FOR DETOX USE ONLY) PO ONE (10:00)
[2016-10-25] MEDS ORDERED: METHADONE HCL 5 MG TABLET (FOR DETOX USE ONLY) PO ONE (06:00)
== END 2016-10-23 10:12 | disposition left against medical advice (07) | DRG 770 ==
LOC: YASAS 22:44 → Y6N 23:38 → UNDOADMIN 23:38 → Y6N 10-20 00:44
PROVIDERS: ADMIT Internal Medicine Addiction Medicine; ATTEND Internal Medicine Addiction Medicine
PROC: HZ2ZZZZ Detoxification Services for Substance Abuse Treatment (ICD-10-PCS; principal; 2016-10-23)
DX: F11.23 Opioid dependence with withdrawal (principal); F10.230 Alcohol dependence with withdrawal, uncomplicated; F14.20 Cocaine dependence, uncomplicated; F12.20 Cannabis dependence, uncomplicated; F17.213 Nicotine dependence, cigarettes, with withdrawal; F31.81 Bipolar II disorder
CPT/HCPCS: 36415; 80053; 82947; 85027; 86593; 90732; 93005; 93010; G0009

== ENCOUNTER 2017-02-20 10:13 | Inpatient (IN) | payer OTHER ==
[2017-02-20 11:13] VITALS: BMI 24.8
--- NOTE | 2017-02-20 13:07 | HP ---
COWS - Scale Resting Pulse: 0= [place] 80 or Below Sweatin= Chills/Flushing Restless Observation: 1= Difficult to Sit Still Pupil Size: 1= Pupils >than Normal Bone or Joint Aches: 1= Mild Discomfort Runny Nose/ Eye Tearin= Nasal Congestion GI Upset > 30mins: 2= Nausea/Diarrhea Tremor Observation: 2= Slight Tremor Visible Yawning Observation: 1= 1-2x During Session Anxiety or Irritability: 2=Irritable/Anxious Goose Flesh Skin: 3=Piloerection COWS Score: 15 CIWA Score - CIWA Score Nausea/Vomitin Muscle Tremors: 4-Moderate,w/Arms Extend Anxiety: 4-Mod. Anxious/Guarded Agitation: 4-Moderately Restless Paroxysmal Sweats: 3 Orientation: 0-Oriented Tacttile Disturbances: 0-None Auditory Disturbances: 0-None Visual Disturbances: 0-None Headache: 0-None Present CIWA-Ar Total Score: 18 Admission ROS S - HPI Chief Complaint: alcohol and heroin withdrawal sx Allergies/Adverse Reactions: Allergies Allergy/AdvReac Type Severity Reaction Status Date / Time No Known Allergies Allergy Verified 02/20/17 12:05 History of Present Illness: 46 yo f with h/o chronic alcohoism, opioid, crack cocaine, nicotine and cannabis dependence with h/o withdrawal sx when she does nto use, last used today, PMHX PTSD, bipolar do, insomnia, no h/o suicide attempts no suicidal ideation at present. Came in today for detox because there is not place to go but up no h/o seizures or DTs, IDU heorin, no h/o OD. Exam Limitations: No Limitations - Ebola screening Have you traveled outside of the country in the last 21 days: No Have you had contact with anyone from an Ebola affected area: No Have you been sick,other than usual withdrawal symptoms: No Do you have a fever: No - Review of Systems Constitutional: Chills, Night Sweats, Changes in sleep, Unintentional Wgt. Loss EENT: reports: Nose Congestion Respiratory: reports: No Symptoms reported Cardiac: reports: No Symptoms Reported GI: reports: Diarrhea, Nausea, Poor Appetite, Poor Fluid Intake, Vomiting, Indigestion, Abdominal cramping : reports: No Symptoms Reported Musculoskeletal: reports: Back Pain (withdrawal sx), Muscle Pain Integumentary: reports: Flushing, Sweating Neuro: reports: Headache, Tremors, Weakness Endocrine: reports: No Symptoms Reported Hematology: reports: No Symptoms Reported Psychiatric: reports: Judgement Intact, Mood/Affect Appropiate, Orientated x3, Anxious, Depressed Other Systems: Reviewed and Negative Patient History - Patient Medical History Hx Anemia: No Hx Asthma: No Hx Chronic Obstructive Pulmonary Disease (COPD): No Hx Cancer: No Hx Cardiac Disorders: No Hx Congestive Heart Failure: No Hx Hypertension: No Hx Hypercholesterolemia: No Hx Pacemaker: No HX Cerebrovascular Accident: No Hx Seizures: No Hx Dementia: No Hx Diabetes: No Hx Gastrointestinal Disorders: No Hx Liver Disease: No Hx Genitourinary Disorders: No Hx Sexually Transmitted Disorders: No Hx Renal Disease (ESRD): No Hx Thyroid Disease: No Hx Human Immunodeficiency Virus (HIV): No (negative LAST 06/08) Hx Hepatitis C: No Hx Depression: No Hx Suicide Attempt: No Hx Bipolar Disorder: Yes Hx Schizophrenia: No - Patient Surgical History Past Surgical History: Yes Hx Neurologic Surgery: No Hx Cataract Extraction: No Hx Cardiac Surgery: No Hx Lung Surgery: No Hx Breast Surgery: No Hx Breast Biopsy: No Hx Abdominal Surgery: No Hx Appendectomy: No Hx Cholecystectomy: No Hx Genitourinary Surgery: No Hx Section: No Hx Orthopedic Surgery: Yes (club feet repair as ) Anesthesia Reaction: No - PPD History Previous Implant?: Yes Documented Results: Negative w/proof Implanted On Prior R Admission?: Yes Date: 08/20/16 PPD to be Administered?: No - Reproductive History Patient is a Female of Child Bearing Age (11 -55 yrs old): No Last Menstrual Period: 01/15/15 Patient : No - Smoking Cessation Smoking history: Current every day smoker Have you smoked in the past 12 months: Yes Aproximately how many cigarettes per day: 10 Cigars Per Day: 0 Hx Chewing Tobacco Use: No Initiated information on smoking cessation: Yes 'Breaking Loose' booklet given: 02/20/17 - Substance & Tx. History Hx Alcohol Use: Yes Hx Substance Use: Yes Substance Use Type: Alcohol, Cocaine, Heroin, Marijuana, Opiates Hx Substance Use Treatment: Yes - Substances Abused Heroin Route: Injection Frequency: Daily Amount used: 11 bags Age of first use: 28 Date of Last Use: 02/20/17 Cocaine Route: Smoking Frequency: Daily Amount used: $40 Age of first use: 28 Date of Last Use: 02/18/17 Marijuana/Hashish Route: Smoking Frequency: Daily Amount used: $10 Age of first use: 15 Date of Last Use: 02/20/17 Alcohol Route: Oral Frequency: Daily Amount used: beer and vodka, 4-60 oz beer,, 1 pint vodka Age of first use: 15 Date of Last Use: 02/20/17 Family Disease History - Family Disease History Family Disease History: Heart Disease: Grandparent, Mother, [place]: Grandparent, Other: Father () Admission Physical Exam S - Vital Signs Vital Signs: Vital Signs - 24 hr 02/20/17 11:10 Temperature 96.4 F L Pulse Rate 70 Respiratory 20 Rate Blood Pressure 159/94 - Physical General Appearance: Yes: Nourished, Appropriately Dressed, Disheveled, Mild Distress, Thin, Tremorous, Irritable, Sweating, Anxious HEENTM: Yes: EOMI, Hearing grossly Normal, Normal ENT Inspection, Normocephalic , Normal Voice, RUDY, Pharynx Normal, Nasal Congestion Respiratory: Yes: Within Normal Limits, Chest Non-Tender, Lungs Clear, Normal Breath Sounds, No Respiratory Distress, No Accessory Muscle Use Neck: Yes: Within Normal Limits, No masses,lesions,Nodules, Supple, Trachea in good position Breast: Yes: Breast Exam Deferred Cardiology: Yes: Within Normal Limits, Regular Rhythm, Regular Rate, S1, S2 Abdominal: Yes: Within Normal Limits, Normal Bowel Sounds, Non Tender, Flat, Soft Genitourinary: Yes: Within Normal Limits Back: Yes: Decreased Range of Motion, Muscle Spasm, Surgical Scar (club feet surgery) Musculoskeletal: Yes: full range of Motion, Gait Steady, Pelvis Stable, Back pain, Muscle Pain Extremities: Yes: Normal Capillary Refill, Tremors Neurological: Yes: proof reader II-XII NML intact, Fully Oriented, Alert, Motor Strength 5/5, Depressed Affect Integumentary: Yes: Normal Color, Warm, Diaphoresis, Track Schumacher (mainly left arm, no abscess or erythema), Other (scarring from picking skin) Lymphatic: Yes: Within Normal Limits - Addiitonal Findings: withdrawal sx, elevated bp - Diagnostic (1) Fractured great toe Current Visit: No Status: Resolved Qualifiers: Encounter type: initial encounter Fracture type: open Phalanx: proximal Fracture alignment: nondisplaced Laterality: left Qualified Code(s): S92.415B - Nondisplaced fracture of proximal phalanx of left great toe, initial encounter for open fracture; S92.415B - Nondisplaced fracture of proximal phalanx of left great toe, initial encounter for open fracture (2) Laceration of toe involving extensor tendon Current Visit: No Status: Inactive Qualifiers: Encounter type: initial encounter Qualified Code(s): S91.119A - Laceration without foreign body of unspecified toe without damage to nail, initial encounter; S91.119A - Laceration without foreign body of unspecified toe without damage to nail, initial encounter; S96.129A - Laceration of muscle and tendon of long extensor muscle of toe at ankle and foot level, unspecified foot, initial encounter; S96.129A - Laceration of muscle and tendon of long extensor muscle of toe at ankle and foot level, unspecified foot, initial encounter (3) Nicotine dependence Current Visit: Yes Status: Chronic Qualifiers: Nicotine product type: cigarettes Substance use status: in withdrawal Qualified Code(s): F17.213 - Nicotine dependence, cigarettes, with withdrawal; F17.213 - Nicotine dependence, cigarettes, with withdrawal (4) Opioid dependence with withdrawal Current Visit: Yes Status: Chronic (5) Alcohol dependence with uncomplicated withdrawal Current Visit: Yes Status: Chronic (6) Benign skin lesion of face Current Visit: Yes Status: Chronic (7) Bipolar disorder Current Visit: Yes Status: Chronic Qualifiers: Most recent bipolar episode type: most recent episode unspecified type (8) Cannabis dependence Current Visit: Yes Status: Chronic (9) Cocaine dependence Current Visit: Yes Status: Chronic Qualifiers: Substance use status: uncomplicated Qualified Code(s): F14.20 - Cocaine dependence, uncomplicated; F14.20 - Cocaine dependence, uncomplicated; F14.20 - Cocaine dependence, uncomplicated (10) Panic disorder without agoraphobia Current Visit: Yes Status: Chronic (11) Weight decreased Current Visit: Yes Status: Acute Cleared for Admission [facility] - Detox or Rehab [facility] Level of Care: Medically Managed Detox Regimen/Protocol: Methadone/Librium [facility] Breath Alcohol Content Breath Alcohol Content: 0 Urine Pregancy Test - Result Urine Test Results: Negative- NO Line Present Urine Drug Screen - Results Drug Screen Negative: No Urine Drug Screen Results: THC-Marijuana, IVÁN-Cocaine, OPI-Opiates, OXY- Oxycodone
[2017-02-20] MEDS ORDERED: NICOTINE POLACRILEX 2 MG GUM BUC PRN (13:10)
[2017-02-20] MEDS ORDERED: P-EPHED 60MG/TRIPROLIDI 2.5MG TABLET PO PRN (13:10)
[2017-02-20] MEDS ORDERED: chlordiazePOXIDE HCL 25 MG CAPSULE PO PRN (13:10)
[2017-02-20] MEDS ORDERED: hydrOXYzine PAMOATE 50 MG CAPSULE (FP) PO PRN (13:10)
[2017-02-20] MEDS ORDERED: MENTHOL/PHENOL 1 EACH UD MM PRN (13:10)
[2017-02-20] MEDS ORDERED: ACETAMINOPHEN 325 MG TABLET (FP) PO PRN (13:10)
[2017-02-20] MEDS ORDERED: MAGNESIUM HYDROX 2400MG/30ML ORAL SUSPENSION 30 ML CUP PO PRN (13:10)
[2017-02-20] MEDS ORDERED: guaiFENesin/D-METHORPHAN HB 10 ML UNIT-DOSE CUPS PO PRN (13:10)
[2017-02-20] MEDS ORDERED: MAG HYDROX/AL HYDROX/SIMETH 30 ML UNIT-DOSE CUP PO PRN (13:10)
[2017-02-20] MEDS ORDERED: diphenhydrAMINE HCL 50 MG CAPSULE PO PRN (13:10)
[2017-02-20] MEDS ORDERED: MAGNESIUM CITRATE 300 ML BOTTLE PO PRN (13:10)
[2017-02-20] MEDS ORDERED: IBUPROFEN 400 MG TABLET (FP) PO PRN (13:10)
[2017-02-20] MEDS ORDERED: LOPERAMIDE HCL 2 MG CAPSULE PO PRN (13:10)
[2017-02-20] MEDS ORDERED: COLLOIDAL OATMEAL 1 BAR EACH TP PRN (13:14)
[2017-02-20] MEDS: NICOTINE 14 MG/24 HOURS TOPICAL PATCH TD SCH (14:29)
[2017-02-20] MEDS ORDERED: METHADONE HCL 10 MG TABLET (FOR DETOX USE ONLY) PO ONE ×2 (15:00→23:00)
[2017-02-20] MEDS: chlordiazePOXIDE HCL 25 MG CAPSULE PO SCH ×2 (17:50→22:22)
[2017-02-20 17:51] LABS: URINE APPEARANCE CLEAR; URINE BILIRUBIN NEGATIVE (NEGATIVE); URINE BLOOD NEGATIVE (NEGATIVE); URINE COLOR YELLOW; URINE GLUCOSE (UA) NEGATIVE (NEGATIVE); URINE KETONE NEGATIVE (NEGATIVE); URINE LEUK ESTERASE NEGATIVE (NEGATIVE); URINE NITRITE NEGATIVE (NEGATIVE); URINE PROTEIN NEGATIVE (NEGATIVE); URINE UROBILINOGEN NEGATIVE mg/dL (0.2-1.0)
--- NOTE | 2017-02-20 20:42 | EKG ---
Test Reason : Blood Pressure : / mmHG Vent. Rate : 059 BPM Atrial Rate : 059 BPM P-R Int : 110 ms QRS Dur : 084 ms QT Int : 398 ms P-R-T Axes : -88 044 038 degrees QTc Int : 394 ms UNUSUAL P AXIS AND SHORT DE, PROBABLE JUNCTIONAL RHYTHM ABNORMAL ECG WHEN COMPARED WITH ECG OF 20-OCT-2016 00:06, JUNCTIONAL RHYTHM HAS REPLACED SINUS RHYTHM NONSPECIFIC T WAVE ABNORMALITY NO LONGER EVIDENT IN LATERAL LEADS Confirmed by ED LAW MD ([id number]) on 02/20/2017 8:42:24 PM Referred By: Confirmed By:ED LAW MD
[2017-02-20] MEDS: QUEtiapine FUMARATE 25 MG TABLET (FP) PO SCH (22:18)
[2017-02-20] MEDS: MIRTAZAPINE 15 MG TABLET (FP) PO SCH (22:18)
[2017-02-20] MEDS: THIAMINE HCL 100 MG TABLET (FP) PO SCH (22:18)
[2017-02-21] MEDS: chlordiazePOXIDE HCL 25 MG CAPSULE PO SCH ×4 (05:33→22:20)
--- NOTE | 2017-02-21 07:39 | CONSULT ---
[facility] Psychiatric Consult - Data Date of interview: 02/21/17 Admission source: [facility] Identifying data: This is 46 years old female with histopry of Bipolar disorder , Panic Attacks Disorder, with no history of psychiatric hospitalizations, intoxiocated with: Alcohol, Heroin, Cocaine, Nicotine Substance Abuse History: - Smoking Cessation. Smoking history: Current every day smoker. Have you smoked in the past 12 months: Yes. Aproximately how many cigarettes per day: 10. Cigars Per Day: 0. Hx Chewing Tobacco Use: No. Initiated information on smoking cessation: Yes. 'Breaking Loose' booklet given : 02/20/17. - Substance & Tx. History. Hx Alcohol Use: Yes. Hx Substance Use : Yes. Substance Use Type: Alcohol, Cocaine, Heroin, Marijuana, Opiates. Hx Substance Use Treatment: Yes. - Substances Abused. Heroin. Route: Injection. Frequency: Daily. Amount used: 11 bags. Age of first use: 28. Date of Last Use: 02/20/17. Cocaine. Route: Smoking. Frequency: Daily. Amount used: $40. Age of first use: 28. Date of Last Use: 02/18/17. Marijuana/Hashish. Route: Smoking. Frequency: Daily. Amount used: $10. Age of first use: 15. Date of Last Use: 02/20/17. Alcohol. Route: Oral. Frequency: Daily. Amount used: beer and vodka, 4-60 oz beer,, 1 pint vodka. Age of first use: 15. Date of Last Use: 02/20/17. Family Disease History Medical History: Weight loss Psychiatric History: Patient reports history of Bipolar disorder and Panic Attack disorder, reprots taking prior to admission: Bupar 30mg po bid. Seroquel 25mg po qhs. Remeron 15mg po qhs Physical/Sexual Abuse/Trauma History: Denies Additional Comment: Bupar 30mg po bid. Seroquel 25mg po qhs. Remeron 15mg po qhs Mental Status Exam - Mental Status Exam Alert and Oriented to: Person Cognitive Function: Fair Patient Appearance: Unkempt Mood: Apprehensive Affect: Mood Congruent Patient Behavior: Cooperative Speech Pattern: Appropriate Voice Loudness: Mildly Soft/Quiet Thought Process: Goal Oriented Thought Disorder: Being Controlled Hallucinations: Denies Suicidal Ideation: Denies Homicidal Ideation: Denies Insight/Judgement: Fair Sleep: Difficulty falling asleep Appetite: Weight loss Muscle strength/Tone: Mild Hypotonicity Gait/Station: Normal Additional Comments: Bupar 30mg po bid. Seroquel 25mg po qhs. Remeron 15mg po qhs Psychiatric Findings - Problem List ([place] 1, 2,3) (1) Weight decreased Current Visit: Yes Status: Acute (2) Alcohol dependence with uncomplicated withdrawal Current Visit: Yes Status: Chronic (3) Bipolar disorder Current Visit: Yes Status: Chronic Qualifiers: Most recent bipolar episode type: most recent episode unspecified type (4) Cannabis dependence Current Visit: Yes Status: Chronic (5) Cocaine dependence Current Visit: Yes Status: Chronic Qualifiers: Substance use status: uncomplicated Qualified Code(s): F14.20 - Cocaine dependence, uncomplicated; F14.20 - Cocaine dependence, uncomplicated; F14.20 - Cocaine dependence, uncomplicated (6) Nicotine dependence Current Visit: Yes Status: Chronic Qualifiers: Nicotine product type: cigarettes Substance use status: in withdrawal Qualified Code(s): F17.213 - Nicotine dependence, cigarettes, with withdrawal; F17.213 - Nicotine dependence, cigarettes, with withdrawal (7) Opioid dependence with withdrawal Current Visit: Yes Status: Chronic (8) Panic disorder without agoraphobia Current Visit: Yes Status: Chronic - Initial Treatment Plan Initial Treatment Plan: Bupar 30mg po bid. Seroquel 25mg po qhs. Remeron 15mg po qhs
[2017-02-21] MEDS ORDERED: METHADONE HCL 10 MG TABLET (FOR DETOX USE ONLY) PO SCH (10:00)
--- NOTE | 2017-02-21 10:05 | PN ---
S CIWA - CIWA Score Nausea/Vomitin Muscle Tremors: 3 Anxiety: 3 Agitation: 2 Paroxysmal Sweats: 1-Minimal Palms Moist Orientation: 0-Oriented Tacttile Disturbances: 1-Very Mild Itch/Numbness Auditory Disturbances: 1-Very Mild Visual Disturbances: 1-Very Mild Sensitivity Headache: 2-Mild CIWA-Ar Total Score: 17 BHS COWS - Scale Resting Pulse: 0= [place] 80 or Below Sweatin= Chills/Flushing Restless Observation: 3= Extraneous Movement Pupil Size: 1= Pupils >than Normal Bone or Joint Aches: 2= Severe Diffuse Aches Runny Nose/ Eye Tearin= Runny Nose/Eyes GI Upset > 30mins: 2= Nausea/Diarrhea Tremor Observation of Outstretched Hands: 2= Slight Tremor Visible Yawning Observation: 1= 1-2x During Session Anxiety or Irritability: 2=Irritable/Anxious Goose Flesh Skin: 0=Smooth Skin COWS Score: 16 S Progress Note (SOAP) Subjective: alert,irritable,anxious,interrupted sleep,tremor,pain in the body and back Objective: 02/21/17 10:03 Vital Signs Temperature 98.2 F 02/21/17 09:15 Pulse Rate 76 02/21/17 09:15 Respiratory Rate 20 02/21/17 09:15 Blood Pressure 133/89 02/21/17 09:15 O2 Sat by Pulse Oximetry (%) junctional rhytm 59/min Laboratory Last Values Urine Color Yellow 02/20/17 17:00 Urine Appearance Clear 02/20/17 17:00 Urine pH 5.0 (5.0-8.0) 02/20/17 17:00 Ur Specific [place] >= 1.030 (1.005-1.025) H 02/20/17 17:00 Urine Protein Negative (NEGATIVE) 02/20/17 17:00 Urine Glucose (UA) Negative (NEGATIVE) 02/20/17 17:00 Urine Ketones Negative (NEGATIVE) 02/20/17 17:00 Urine Blood Negative (NEGATIVE) 02/20/17 17:00 Urine Nitrite Negative (NEGATIVE) 02/20/17 17:00 Urine Bilirubin Negative (NEGATIVE) 02/20/17 17:00 Urine Urobilinogen Negative mg/dL (0.2-1.0) 02/20/17 17:00 Laboratory Last Values Urine Color Yellow 02/20/17 17:00 Urine Appearance Clear 02/20/17 17:00 Urine pH 5.0 (5.0-8.0) 02/20/17 17:00 Ur Specific [place] >= 1.030 (1.005-1.025) H 02/20/17 17:00 Urine Protein Negative (NEGATIVE) 02/20/17 17:00 Urine Glucose (UA) Negative (NEGATIVE) 02/20/17 17:00 Urine Ketones Negative (NEGATIVE) 02/20/17 17:00 Urine Blood Negative (NEGATIVE) 02/20/17 17:00 Urine Nitrite Negative (NEGATIVE) 02/20/17 17:00 Urine Bilirubin Negative (NEGATIVE) 02/20/17 17:00 Urine Urobilinogen Negative mg/dL (0.2-1.0) 02/20/17 17:00 labs pending Assessment: 02/21/17 10:04 withdrawal symptom Plan: continue detox
[2017-02-21 10:09] LABS: MCH 28.4 pg (25.7-33.7); MCHC 32.3 g/dl (32.0-36.0); MEAN PLT VOLUME 9.8 fl (7.5-11.1); PLATELET COUNT 163 K/MM3 (134-434); RDW 14.7 % (11.6-15.6); WHITE BLOOD COUNT 6.4 K/mm3 (4.0-10.0)
[2017-02-21 10:32] LABS: ALBUMIN 2.9 g/dl (3.4-5.0); ALK PHOS 44 U/L (45-117); ANION GAP 3 (8-16); BILIRUBIN,TOTAL 0.3 mg/dL (0.2-1.0); CALCIUM 9.1 mg/dL (8.5-10.1); CO2 32 mmol/L (21-32); CREATININE 1.1 mg/dL (0.55-1.02); GLUCOSE,RANDOM 87 mg/dL (74-106); SGOT/AST 10 U/L (15-37); SGPT/ALT 14 U/L (12-78); TOT PROT 6.1 g/dl (6.4-8.2)
[2017-02-21] MEDS: PRENATAL VITAMINS W/ FOLIC ACID TABLET (FP) PO SCH (10:38)
[2017-02-21] MEDS: NICOTINE 14 MG/24 HOURS TOPICAL PATCH TD SCH (10:41)
[2017-02-21] MEDS ORDERED: FLU VACCINE QUAD 60 MCG/0.5 ML (MDV 17-18) IM ONE (15:00)
[2017-02-21] MEDS: MIRTAZAPINE 15 MG TABLET (FP) PO SCH (22:20)
[2017-02-21] MEDS: QUEtiapine FUMARATE 25 MG TABLET (FP) PO SCH (22:20)
[2017-02-21] MEDS: THIAMINE HCL 100 MG TABLET (FP) PO SCH (22:21)
[2017-02-22] MEDS: chlordiazePOXIDE HCL 25 MG CAPSULE PO SCH ×2 (05:41→10:16)
--- NOTE | 2017-02-22 09:29 | PN ---
S CIWA - CIWA Score Nausea/Vomitin Muscle Tremors: 3 Anxiety: 2 Agitation: 2 Paroxysmal Sweats: 1-Minimal Palms Moist Orientation: 0-Oriented Tacttile Disturbances: 1-Very Mild Itch/Numbness Auditory Disturbances: 1-Very Mild Visual Disturbances: 1-Very Mild Sensitivity Headache: 2-Mild CIWA-Ar Total Score: 16 BHS COWS - Scale Resting Pulse: 0= [place] 80 or Below Sweatin= Chills/Flushing Restless Observation: 3= Extraneous Movement Pupil Size: 1= Pupils >than Normal Bone or Joint Aches: 2= Severe Diffuse Aches Runny Nose/ Eye Tearin= Nasal Congestion GI Upset > 30mins: 2= Nausea/Diarrhea Tremor Observation of Outstretched Hands: 2= Slight Tremor Visible Yawning Observation: 1= 1-2x During Session Anxiety or Irritability: 2=Irritable/Anxious Goose Flesh Skin: 0=Smooth Skin COWS Score: 15 BHS Progress Note (SOAP) Subjective: ALERT,IRRITABLE,ANXIOUS,INTERRUPTED SLEEP,TREMOR,PAIN IN THE BODY AND BACK Objective: 02/22/17 09:27 Vital Signs Temperature 98.1 F 02/22/17 06:00 Pulse Rate 61 02/22/17 06:00 Respiratory Rate 16 02/22/17 06:00 Blood Pressure 123/72 02/22/17 06:00 O2 Sat by Pulse Oximetry (%) Laboratory Last Values WBC 6.4 K/mm3 (4.0-10.0) 02/21/17 07:30 RBC 4.62 M/mm3 (3.60-5.2) 02/21/17 07:30 Hgb 13.1 GM/dL (10.7-15.3) 02/21/17 07:30 Hct 40.6 % (32.4-45.2) 02/21/17 07:30 MCV 88.0 fl (80-96) 02/21/17 07:30 MCH 28.4 pg (25.7-33.7) 02/21/17 07:30 MCHC 32.3 g/dl (32.0-36.0) 02/21/17 07:30 RDW 14.7 % (11.6-15.6) 02/21/17 07:30 Plt Count 163 K/MM3 (134-434) 02/21/17 07:30 MPV 9.8 fl (7.5-11.1) 02/21/17 07:30 Sodium 145 mmol/L (136-145) 02/21/17 07:30 Potassium 4.1 mmol/L (3.5-5.1) 02/21/17 07:30 Chloride 110 mmol/L (98-107) H 02/21/17 07:30 Carbon Dioxide 32 mmol/L (21-32) 02/21/17 07:30 Anion Gap 3 (8-16) L 02/21/17 07:30 BUN 9 mg/dL (7-18) 02/21/17 07:30 Creatinine 1.1 mg/dL (0.55-1.02) H D 02/21/17 07:30 Creat Clearance w eGFR 53.47 (>60) 02/21/17 07:30 Random Glucose 87 mg/dL (74-106) D 02/21/17 07:30 Calcium 9.1 mg/dL (8.5-10.1) 02/21/17 07:30 Total Bilirubin 0.3 mg/dL (0.2-1.0) 02/21/17 07:30 AST 10 U/L (15-37) L D 02/21/17 07:30 ALT 14 U/L (12-78) 02/21/17 07:30 Alkaline Phosphatase 44 U/L (45-117) L 02/21/17 07:30 Total Protein 6.1 g/dl (6.4-8.2) L 02/21/17 07:30 Albumin 2.9 g/dl (3.4-5.0) L 02/21/17 07:30 Urine Color Yellow 02/20/17 17:00 Urine Appearance Clear 02/20/17 17:00 Urine pH 5.0 (5.0-8.0) 02/20/17 17:00 Ur Specific [place] >= 1.030 (1.005-1.025) H 02/20/17 17:00 Urine Protein Negative (NEGATIVE) 02/20/17 17:00 Urine Glucose (UA) Negative (NEGATIVE) 02/20/17 17:00 Urine Ketones Negative (NEGATIVE) 02/20/17 17:00 Urine Blood Negative (NEGATIVE) 02/20/17 17:00 Urine Nitrite Negative (NEGATIVE) 02/20/17 17:00 Urine Bilirubin Negative (NEGATIVE) 02/20/17 17:00 Urine Urobilinogen Negative mg/dL (0.2-1.0) 02/20/17 17:00 RPR Titer Nonreactive (NONREACTIVE) 02/21/17 07:30 Assessment: 02/22/17 09:28 WITHDRAWAL SYMPTOM Plan: CONTINUE DETOX
[2017-02-22] MEDS: METHADONE HCL 5 MG TABLET (FOR DETOX USE ONLY) PO SCH (10:15)
[2017-02-22] MEDS: PRENATAL VITAMINS W/ FOLIC ACID TABLET (FP) PO SCH (10:16)
[2017-02-22] MEDS: NICOTINE 14 MG/24 HOURS TOPICAL PATCH TD SCH (10:18)
[2017-02-22] MEDS: chlordiazePOXIDE 5 MG CAPSULE PO SCH ×2 (17:08→23:25)
[2017-02-22] MEDS: THIAMINE HCL 100 MG TABLET (FP) PO SCH (22:18)
[2017-02-22] MEDS: QUEtiapine FUMARATE 25 MG TABLET (FP) PO SCH (22:18)
[2017-02-22] MEDS: MIRTAZAPINE 15 MG TABLET (FP) PO SCH (22:18)
[2017-02-23] MEDS: chlordiazePOXIDE 5 MG CAPSULE PO SCH ×2 (05:48→10:12)
[2017-02-23] MEDS: METHADONE HCL 5 MG TABLET (FOR DETOX USE ONLY) PO SCH (10:12)
[2017-02-23] MEDS: PRENATAL VITAMINS W/ FOLIC ACID TABLET (FP) PO SCH (10:12)
[2017-02-23] MEDS: NICOTINE 14 MG/24 HOURS TOPICAL PATCH TD SCH (10:13)
--- NOTE | 2017-02-23 11:03 | PN ---
S Progress Note (SOAP) Subjective: alert,irritable,anxious,interrupted sleep Objective: 02/23/17 11:02 Vital Signs Temperature 97.8 F 02/23/17 10:05 Pulse Rate 70 02/23/17 10:05 Respiratory Rate 18 02/23/17 10:05 Blood Pressure 150/90 02/23/17 10:05 O2 Sat by Pulse Oximetry (%) Assessment: 02/23/17 11:02 withdrawal symptom Plan: continue detox
[2017-02-23] MEDS: AMMONIUM LACTATE 12% LOTION 225 GM BOTTLE TP PRN (11:15)
[2017-02-23] MEDS: chlordiazePOXIDE HCL 10 MG CAPSULE PO SCH ×2 (18:03→22:50)
[2017-02-23] MEDS: MIRTAZAPINE 15 MG TABLET (FP) PO SCH (22:25)
[2017-02-23] MEDS: QUEtiapine FUMARATE 25 MG TABLET (FP) PO SCH (22:25)
[2017-02-23] MEDS: THIAMINE HCL 100 MG TABLET (FP) PO SCH (22:26)
[2017-02-24] MEDS: chlordiazePOXIDE HCL 10 MG CAPSULE PO SCH ×2 (05:35→10:24)
[2017-02-24] MEDS ORDERED: METHADONE HCL 10 MG TABLET (FOR DETOX USE ONLY) PO SCH (10:00)
[2017-02-24] MEDS: PRENATAL VITAMINS W/ FOLIC ACID TABLET (FP) PO SCH (10:23)
[2017-02-24] MEDS: NICOTINE 14 MG/24 HOURS TOPICAL PATCH TD SCH (10:24)
--- NOTE | 2017-02-24 11:16 | PN ---
BHS Progress Note (SOAP) Subjective: ALERT,IRRITABLE,ANXIOUS,INTERRUPTED SLEEP Objective: 02/24/17 11:15 Vital Signs Temperature 98.6 F 02/24/17 10:15 Pulse Rate 74 02/24/17 10:15 Respiratory Rate 18 02/24/17 10:15 Blood Pressure 139/89 02/24/17 10:15 O2 Sat by Pulse Oximetry (%) Assessment: 02/24/17 11:15 WITHDRAWAL SYMPTOM Plan: CONTINUE DETOX,DISCHARGE IN AM
[2017-02-24 22:24] VITALS: TEMP 98.2
[2017-02-24] MEDS: MIRTAZAPINE 15 MG TABLET (FP) PO SCH (22:24)
[2017-02-24] MEDS: QUEtiapine FUMARATE 25 MG TABLET (FP) PO SCH (22:24)
[2017-02-24] MEDS: THIAMINE HCL 100 MG TABLET (FP) PO SCH (22:25)
[2017-02-25] MEDS ORDERED: METHADONE HCL 5 MG TABLET (FOR DETOX USE ONLY) PO SCH (06:00)
--- NOTE | 2017-02-25 09:34 | DS ---
[facility] Detox Discharge Summary Admission Date: 02/20/17 Discharge Date: 02/25/17 - History Present History: Alcohol Dependence, Cannabis Dependence, Cocaine Dependence, Opioid Dependence Additional Comments: follow up with [facility] Pertinent Past History: bipolar disorder - Physical Exam Results Vital Signs: Vital Signs Temperature 98.2 F 02/25/17 07:47 Pulse Rate 68 02/25/17 07:47 Respiratory Rate 18 02/25/17 07:47 Blood Pressure 99/58 02/25/17 07:47 O2 Sat by Pulse Oximetry (%) Pertinent Admission Physical Exam Findings: withdrawal symptom - Treatment Hospital Course: Detox Protocol Followed, Detoxed Safely, Responded well, Discharged Condition Good, Rehab Referral Accepted Patient has Accepted a Re[facility] Referral [facility]: [facility] - Medication Discharge Medications: Ambulatory Orders Cholecalciferol (Vitamin D3) [Vitamin D3] 50,000 unit PO WEEKLY 12/31/15 Mirtazapine [Remeron -] 15 mg PO HS #30 tablet 10/21/16 Quetiapine Fumarate [Seroquel -] 25 mg PO HS #30 tablet 10/21/16 Buspirone HCl [Buspar -] 30 mg PO BID 02/20/17 Buspirone HCl [Buspar -] 30 mg PO BID #30 tablet 02/21/17 Mirtazapine [Remeron -] 15 mg PO HS #30 tablet 02/21/17 Quetiapine Fumarate [Seroquel -] 25 mg PO HS #30 tab 02/21/17 - Diagnosis (1) Opioid dependence with withdrawal Current Visit: Yes Status: Chronic (2) Alcohol dependence with uncomplicated withdrawal Current Visit: Yes Status: Chronic (3) Cannabis dependence Current Visit: Yes Status: Chronic (4) Cocaine dependence Current Visit: Yes Status: Chronic Qualifiers: Substance use status: uncomplicated Qualified Code(s): F14.20 - Cocaine dependence, uncomplicated; F14.20 - Cocaine dependence, uncomplicated; F14.20 - Cocaine dependence, uncomplicated (5) Bipolar disorder Current Visit: Yes Status: Chronic Qualifiers: Most recent bipolar episode type: most recent episode unspecified type
[2017-02-25] MEDS: PRENATAL VITAMINS W/ FOLIC ACID TABLET (FP) PO SCH (10:26)
[2017-02-25 10:27] VITALS: BP 113/76; PULSE 100
[2017-02-25] MEDS: NICOTINE 14 MG/24 HOURS TOPICAL PATCH TD SCH (10:27)
[2017-02-25] MEDS: AMMONIUM LACTATE 12% LOTION 225 GM BOTTLE TP PRN (10:29)
== END 2017-02-25 11:45 | disposition other institution (70) | DRG 773 ==
LOC: YASAS 10:13 → Y6N 13:02
PROVIDERS: ADMIT Internal Medicine; ATTEND Internal Medicine
PROC: HZ2ZZZZ Detoxification Services for Substance Abuse Treatment (ICD-10-PCS; principal; 2017-02-20)
DX: F11.23 Opioid dependence with withdrawal (principal); F10.230 Alcohol dependence with withdrawal, uncomplicated; F14.20 Cocaine dependence, uncomplicated; F12.20 Cannabis dependence, uncomplicated; F17.213 Nicotine dependence, cigarettes, with withdrawal; F31.9 Bipolar disorder, unspecified; F41.0 Panic disorder [episodic paroxysmal anxiety]; Z87.898 Personal history of other specified conditions
CPT/HCPCS: 36415; 80053; 81003; 85027; 86593; 90688; 93005; 93010; G0008

== ENCOUNTER 2017-02-25 11:26 | Inpatient (IN) | payer OTHER ==
[2017-02-25] MEDS ORDERED: MAGNESIUM CITRATE 300 ML BOTTLE PO PRN (13:55)
[2017-02-25] MEDS ORDERED: LOPERAMIDE HCL 2 MG CAPSULE PO PRN (13:55)
[2017-02-25] MEDS ORDERED: ACETAMINOPHEN 325 MG TABLET (FP) PO PRN (13:55)
[2017-02-25] MEDS ORDERED: guaiFENesin/D-METHORPHAN HB 10 ML UNIT-DOSE CUPS PO PRN (13:55)
[2017-02-25] MEDS ORDERED: MENTHOL/PHENOL 1 EACH UD MM PRN (13:55)
[2017-02-25] MEDS ORDERED: IBUPROFEN 400 MG TABLET (FP) PO PRN (13:55)
[2017-02-25] MEDS ORDERED: P-EPHED 60MG/TRIPROLIDI 2.5MG TABLET PO PRN (13:55)
[2017-02-25] MEDS ORDERED: diphenhydrAMINE HCL 50 MG CAPSULE PO PRN (13:55)
[2017-02-25] MEDS ORDERED: MAG HYDROX/AL HYDROX/SIMETH 30 ML UNIT-DOSE CUP PO PRN (13:55)
[2017-02-25] MEDS ORDERED: COLLOIDAL OATMEAL 1 BAR EACH TP PRN (13:56)
--- NOTE | 2017-02-25 14:05 | HP ---
Psychiatrist Admission - Data Date of interview: 02/25/17 Admission source: [facility] Identifying data: This is the first admission to [address] [place] [address] rehabilitation for this 46 years old H female single mother of 2 girls(30 and 23 years old).She is undomiciled,supported by [employer]. Medical History: Unremarkable. Psychiatric History: Reports first contact with psychiatrist was in 2012 while bieng in treatment in one of the [facility]habil[facility] programs to address depression ,anxiety,drug use.Patient was dx with Bipolar disorder.No psychiatric hospitalizations,no history of suicidal attempts reported.Patient sees psychiatrist at [facility].She states she is non compliant with treatment plan,stopped to see a psychiatrist a few months ago but didnt stop to take medications.Currently she is on Remeron 15 mg po hs,Buspar 30 mg po bid and Seroquel 25 mg po hs. Physical/Sexual Abuse/Trauma History: denies Vital Signs: Vital Signs - 24 hr 02/25/17 12:07 Temperature 98.5 F Pulse Rate 84 Respiratory 18 Rate Blood Pressure 125/84 Allergies/Adverse Reactions: Allergies Allergy/AdvReac Type Severity Reaction Status Date / Time No Known Allergies Allergy Verified 02/20/17 12:05 Date of last physical exam: 02/20/17 Concur with the findings of this exam: Yes - Substance Abuse/Tx History Hx Alcohol Use: Yes (drinking since 15 yo,beer 3-4 12 oz cans daily) Hx Substance Use: Yes (marijuana since 15 yo,cocaine since 19 yo,$50 daily, heroin since 28 yo IV u) Substance Use Type: Alcohol, Cocaine, Heroin, Marijuana Hx Substance Use Treatment: Yes (completed 28 days [facility] more than 5 yo) Mental Status Exam - Mental Status Exam Alert and Oriented to: Time, Place, Person Cognitive Function: Grossly Intact Patient Appearance: Well Groomed Mood: Anxious Affect: Labile Patient Behavior: Cooperative Speech Pattern: Clear Voice Loudness: Normal Thought Process: Goal Oriented Thought Disorder: Not Present Hallucinations: Denies Suicidal Ideation: Denies Homicidal Ideation: Denies Insight/Judgement: Fair Sleep: Difficulty falling asleep Appetite: Good Muscle strength/Tone: Normal Gait/Station: Normal Psychiatric Findings - Problem List ([place] 1, 2,3) (1) Bipolar disorder Current Visit: Yes Status: Chronic Qualifiers: Most recent bipolar episode type: most recent episode unspecified type (2) Cannabis dependence Current Visit: Yes Status: Chronic (3) Cocaine dependence Current Visit: Yes Status: Chronic Qualifiers: Substance use status: uncomplicated Qualified Code(s): F14.20 - Cocaine dependence, uncomplicated; F14.20 - Cocaine dependence, uncomplicated; F14.20 - Cocaine dependence, uncomplicated (4) Nicotine dependence Current Visit: Yes Status: Chronic Qualifiers: Nicotine product type: cigarettes Substance use status: in withdrawal Qualified Code(s): F17.213 - Nicotine dependence, cigarettes, with withdrawal; F17.213 - Nicotine dependence, cigarettes, with withdrawal (5) Alcohol dependence Current Visit: Yes Status: Chronic (6) Opioid dependence Current Visit: Yes Status: Chronic - Initial Treatment Plan Initial Treatment Plan: Continue current medications. Will monitor progress.
[2017-02-25] MEDS: AMMONIUM LACTATE 12% LOTION 225 GM BOTTLE TP SCH ×2 (15:00→21:17)
--- NOTE | 2017-02-25 16:22 | HP ---
[facility] Rehab Assess/Revision - Admission History Admitted to Rehab from: [facility] Date of Admission to Rehab: 02/25/17 - Vital signs Vital Signs: Vital Signs Period Temp Pulse Resp BP Sys/Olvera Pulse Ox Last 24 Hr 98.5 F 84 18 125/84 - Findings Detox History & Physical reviewed: Yes Concur with findings: Yes Comments/Additional Findings: transferred from detox to rehab admission as per protocol
--- NOTE | 2017-02-25 16:23 | HP ---
Admission [facility] Allergies/Adverse Reactions: Allergies Allergy/AdvReac Type Severity Reaction Status Date / Time No Known Allergies Allergy Verified 02/20/17 12:05 Patient History - Patient Medical History Hx Anemia: No Hx Asthma: No Hx Chronic Obstructive Pulmonary Disease (COPD): No Hx Cancer: No Hx Cardiac Disorders: No Hx Congestive Heart Failure: No Hx Hypertension: No Hx Hypercholesterolemia: No Hx Pacemaker: No HX Cerebrovascular Accident: No Hx Seizures: No Hx Dementia: No Hx Diabetes: No Hx Gastrointestinal Disorders: No Hx Liver Disease: No Hx Genitourinary Disorders: No Hx Sexually Transmitted Disorders: No Hx Renal Disease (ESRD): No Hx Thyroid Disease: No Hx Human Immunodeficiency Virus (HIV): No (negative LAST 06/08) Hx Hepatitis C: No Hx Depression: Yes Hx Suicide Attempt: No Hx Bipolar Disorder: Yes Hx Schizophrenia: No - Patient Surgical History Past Surgical History: Yes Hx Neurologic Surgery: No Hx Cataract Extraction: No Hx Cardiac Surgery: No Hx Lung Surgery: No Hx Breast Surgery: No Hx Breast Biopsy: No Hx Abdominal Surgery: No Hx Appendectomy: No Hx Cholecystectomy: No Hx Genitourinary Surgery: No Hx Section: No Hx Orthopedic Surgery: Yes (club feet repair as ) Anesthesia Reaction: No - PPD History Previous Implant?: Yes Documented Results: Negative w/proof Implanted On Prior [facility] Admission?: Yes Date: 08/20/16 Results: 0mm - Reproductive History Last Menstrual Period: 01/15/13 Patient : No - Smoking Cessation Smoking history: Smoker current status UNK Have you smoked in the past 12 months: No Aproximately how many cigarettes per day: 0 Cigars Per Day: 0 Hx Chewing Tobacco Use: No Initiated information on smoking cessation: No - Substances Abused Alcohol Route: Oral Frequency: 1-2 times per week Amount used: 2 cans of 12oz beer Age of first use: 15 Date of Last Use: 02/16/17 Cocaine Route: Smoking Frequency: 3-6 times per week Amount used: $60 Age of first use: 19 Date of Last Use: 02/16/17 Heroin Route: Injection Frequency: Daily Amount used: $50 Age of first use: 28 Date of Last Use: 02/20/17 Family Disease History - Family Disease History Family Disease History: Heart Disease: Grandparent, Mother, [place]: Grandparent, Other: Father () Admission Physical Exam [facility] - Vital Signs Vital Signs: Vital Signs - 24 hr 02/25/17 12:07 Temperature 98.5 F Pulse Rate 84 Respiratory 18 Rate Blood Pressure 125/84 BHS Breath Alcohol Content Breath Alcohol Content: 0 Inpatient Rehab Admission - Initial Determination Are CD services needed?: Yes Free of communicable disease: Yes Not in need of hospitalization: Yes - Rehab Admission Criteria Previous failed treatment: Yes Poor recovery environment: Yes Comorbidities: Yes Lacks judgement: No Patient is meeting Inpatient Rehab admission criteria:: Yes
[2017-02-25] MEDS: NICOTINE POLACRILEX 2 MG GUM BUC PRN (17:43)
[2017-02-25] MEDS: THIAMINE HCL 100 MG TABLET (FP) PO SCH (21:16)
[2017-02-25] MEDS: MIRTAZAPINE 15 MG TABLET (FP) PO SCH (21:16)
[2017-02-25] MEDS: QUEtiapine FUMARATE 25 MG TABLET (FP) PO SCH (21:16)
[2017-02-26] MEDS: hydrOXYzine PAMOATE 50 MG CAPSULE (FP) PO PRN ×2 (09:36→15:07)
[2017-02-26] MEDS: PRENATAL VITAMINS W/ FOLIC ACID TABLET (FP) PO SCH (09:37)
[2017-02-26] MEDS: NICOTINE 14 MG/24 HOURS TOPICAL PATCH TD SCH (09:37)
[2017-02-26] MEDS: NICOTINE POLACRILEX 2 MG GUM BUC PRN ×4 (09:38→21:11)
[2017-02-26] MEDS: AMMONIUM LACTATE 12% LOTION 225 GM BOTTLE TP SCH ×2 (09:38→21:11)
[2017-02-26] MEDS: THIAMINE HCL 100 MG TABLET (FP) PO SCH (21:11)
[2017-02-26] MEDS: MIRTAZAPINE 15 MG TABLET (FP) PO SCH (21:11)
[2017-02-26] MEDS: QUEtiapine FUMARATE 25 MG TABLET (FP) PO SCH (21:11)
[2017-02-27] MEDS: hydrOXYzine PAMOATE 50 MG CAPSULE (FP) PO PRN ×3 (06:41→21:05)
[2017-02-27] MEDS: NICOTINE POLACRILEX 2 MG GUM BUC PRN ×3 (06:41→15:47)
[2017-02-27] MEDS: PRENATAL VITAMINS W/ FOLIC ACID TABLET (FP) PO SCH (09:49)
[2017-02-27] MEDS: NICOTINE 14 MG/24 HOURS TOPICAL PATCH TD SCH (09:49)
[2017-02-27] MEDS: AMMONIUM LACTATE 12% LOTION 225 GM BOTTLE TP SCH ×2 (09:49→21:04)
[2017-02-27] MEDS: QUEtiapine FUMARATE 25 MG TABLET (FP) PO SCH (21:04)
[2017-02-27] MEDS: MIRTAZAPINE 15 MG TABLET (FP) PO SCH (21:04)
[2017-02-27] MEDS: THIAMINE HCL 100 MG TABLET (FP) PO SCH (21:04)
[2017-02-28] MEDS: hydrOXYzine PAMOATE 50 MG CAPSULE (FP) PO PRN ×3 (08:48→21:12)
[2017-02-28] MEDS: PRENATAL VITAMINS W/ FOLIC ACID TABLET (FP) PO SCH (10:06)
[2017-02-28] MEDS: AMMONIUM LACTATE 12% LOTION 225 GM BOTTLE TP SCH ×2 (10:07→21:13)
[2017-02-28] MEDS: NICOTINE 14 MG/24 HOURS TOPICAL PATCH TD SCH (10:07)
[2017-02-28] MEDS: NICOTINE POLACRILEX 2 MG GUM BUC PRN ×2 (10:10→15:04)
[2017-02-28] MEDS: THIAMINE HCL 100 MG TABLET (FP) PO SCH (21:12)
[2017-02-28] MEDS: QUEtiapine FUMARATE 25 MG TABLET (FP) PO SCH (21:12)
[2017-02-28] MEDS: MIRTAZAPINE 15 MG TABLET (FP) PO SCH (21:12)
[2017-03-01] MEDS: NICOTINE POLACRILEX 2 MG GUM BUC PRN ×2 (07:36→10:22)
[2017-03-01] MEDS: hydrOXYzine PAMOATE 50 MG CAPSULE (FP) PO PRN ×2 (07:36→19:57)
[2017-03-01] MEDS ORDERED: PT OWN MED DRAWER 7, Y5N ONE ×3 (08:20→23:14)
[2017-03-01] MEDS: PRENATAL VITAMINS W/ FOLIC ACID TABLET (FP) PO SCH (10:20)
[2017-03-01] MEDS: NICOTINE 14 MG/24 HOURS TOPICAL PATCH TD SCH (10:20)
[2017-03-01] MEDS: AMMONIUM LACTATE 12% LOTION 225 GM BOTTLE TP SCH ×2 (10:22→21:08)
[2017-03-01] MEDS: CLOTRIMAZOLE/BETAMET DIPROP TOPICAL CREAM 45 GM TUBE TP SCH ×2 (15:40→21:07)
[2017-03-01] MEDS: THIAMINE HCL 100 MG TABLET (FP) PO SCH (21:07)
[2017-03-01] MEDS: MIRTAZAPINE 15 MG TABLET (FP) PO SCH (21:07)
[2017-03-01] MEDS: QUEtiapine FUMARATE 25 MG TABLET (FP) PO SCH (21:07)
[2017-03-02] MEDS ORDERED: PT OWN MED DRAWER 7, Y5N ONE (08:42)
[2017-03-02] MEDS: CLOTRIMAZOLE/BETAMET DIPROP TOPICAL CREAM 45 GM TUBE TP SCH ×2 (10:16→21:07)
[2017-03-02] MEDS: AMMONIUM LACTATE 12% LOTION 225 GM BOTTLE TP SCH ×2 (10:16→21:45)
[2017-03-02] MEDS: NICOTINE 14 MG/24 HOURS TOPICAL PATCH TD SCH (10:17)
[2017-03-02 10:18] LABS: BASOPHIL 0.7 % (0-2.0); MCH 28.3 pg (25.7-33.7); MCHC 31.7 g/dl (32.0-36.0); MEAN CELL VOLUME 89.1 fl (80-96); MEAN PLT VOLUME 10.5 fl (7.5-11.1); NEUTROPHILS 41.5 % (42.8-82.8); PLATELET COUNT 158 K/MM3 (134-434); RDW 14.2 % (11.6-15.6); WHITE BLOOD COUNT 6.2 K/mm3 (4.0-10.0)
[2017-03-02] MEDS: PRENATAL VITAMINS W/ FOLIC ACID TABLET (FP) PO SCH (10:18)
[2017-03-02] MEDS: NICOTINE POLACRILEX 2 MG GUM BUC PRN (10:19)
[2017-03-02] MEDS: hydrOXYzine PAMOATE 50 MG CAPSULE (FP) PO PRN (10:19)
[2017-03-02 10:56] LABS: ALK PHOS 55 U/L (45-117); ANION GAP 8 (8-16); BILIRUBIN,TOTAL 0.7 mg/dL (0.2-1.0); CALCIUM 9.9 mg/dL (8.5-10.1); CO2 29 mmol/L (21-32); CREATININE 0.9 mg/dL (0.55-1.02); GLUCOSE,RANDOM 101 mg/dL (74-106); SGOT/AST 25 U/L (15-37); SGPT/ALT 45 U/L (12-78); TOT PROT 8.1 g/dl (6.4-8.2)
[2017-03-02] MEDS ORDERED: EMTRICITAB/RILPIVIRINE/TENOFOV 1 EACH TABLET PO SCH (17:15)
[2017-03-02] MEDS: MIRTAZAPINE 15 MG TABLET (FP) PO SCH (21:06)
[2017-03-02] MEDS: THIAMINE HCL 100 MG TABLET (FP) PO SCH (21:06)
[2017-03-02] MEDS: QUEtiapine FUMARATE 25 MG TABLET (FP) PO SCH (21:07)
[2017-03-02] MEDS: NAPROXEN 500 MG TABLET (FP) PO SCH (21:08)
[2017-03-02] MEDS: RANITIDINE HCL 150 MG TABLET (FP) PO SCH (21:09)
[2017-03-03] MEDS ORDERED: PT OWN MED DRAWER 7, Y5N ONE ×3 (02:48→21:11)
[2017-03-03] MEDS: NICOTINE POLACRILEX 2 MG GUM BUC PRN ×2 (07:42→09:56)
[2017-03-03] MEDS: EMTRICITAB/RILPIVIRINE/TENOFOV 1 EACH TABLET PO SCH (07:42)
[2017-03-03] MEDS: hydrOXYzine PAMOATE 50 MG CAPSULE (FP) PO PRN (07:43)
[2017-03-03] MEDS: NICOTINE 14 MG/24 HOURS TOPICAL PATCH TD SCH (09:55)
[2017-03-03] MEDS: CLOTRIMAZOLE/BETAMET DIPROP TOPICAL CREAM 45 GM TUBE TP SCH ×2 (09:55→21:15)
[2017-03-03] MEDS: ERGOCALCIFEROL (VITAMIN D2) 50,000 UNIT CAPSULE (FP) PO SCH (09:55)
[2017-03-03] MEDS: RANITIDINE HCL 150 MG TABLET (FP) PO SCH ×2 (09:55→21:14)
[2017-03-03] MEDS: NAPROXEN 500 MG TABLET (FP) PO SCH ×2 (09:56→21:14)
[2017-03-03] MEDS: AMMONIUM LACTATE 12% LOTION 225 GM BOTTLE TP SCH ×2 (09:56→21:15)
[2017-03-03] MEDS: PRENATAL VITAMINS W/ FOLIC ACID TABLET (FP) PO SCH (09:56)
[2017-03-03] MEDS: MIRTAZAPINE 15 MG TABLET (FP) PO SCH (21:14)
[2017-03-03] MEDS: QUEtiapine FUMARATE 25 MG TABLET (FP) PO SCH (21:14)
[2017-03-03] MEDS: THIAMINE HCL 100 MG TABLET (FP) PO SCH (21:14)
[2017-03-04] MEDS ORDERED: PT OWN MED DRAWER 7, Y5N ONE ×3 (05:33→19:24)
[2017-03-04] MEDS: hydrOXYzine PAMOATE 50 MG CAPSULE (FP) PO PRN ×2 (06:41→20:24)
[2017-03-04] MEDS: NICOTINE POLACRILEX 2 MG GUM BUC PRN ×2 (06:43→20:24)
[2017-03-04] MEDS: EMTRICITAB/RILPIVIRINE/TENOFOV 1 EACH TABLET PO SCH (07:18)
[2017-03-04] MEDS: RANITIDINE HCL 150 MG TABLET (FP) PO SCH ×2 (10:07→21:11)
[2017-03-04] MEDS: NAPROXEN 500 MG TABLET (FP) PO SCH ×2 (10:07→21:14)
[2017-03-04] MEDS: PRENATAL VITAMINS W/ FOLIC ACID TABLET (FP) PO SCH (10:07)
[2017-03-04] MEDS: AMMONIUM LACTATE 12% LOTION 225 GM BOTTLE TP SCH ×2 (10:08→21:11)
[2017-03-04] MEDS: NICOTINE 14 MG/24 HOURS TOPICAL PATCH TD SCH (10:09)
[2017-03-04] MEDS: CLOTRIMAZOLE/BETAMET DIPROP TOPICAL CREAM 45 GM TUBE TP SCH ×2 (10:09→21:11)
[2017-03-04] MEDS: THIAMINE HCL 100 MG TABLET (FP) PO SCH (21:11)
[2017-03-04] MEDS: MIRTAZAPINE 15 MG TABLET (FP) PO SCH (21:11)
[2017-03-04] MEDS: QUEtiapine FUMARATE 25 MG TABLET (FP) PO SCH (21:11)
[2017-03-04] MEDS: MAGNESIUM HYDROX 2400MG/30ML ORAL SUSPENSION 30 ML CUP PO PRN (21:19)
[2017-03-05] MEDS ORDERED: PT OWN MED DRAWER 7, Y5N ONE ×6 (05:53→22:48)
[2017-03-05] MEDS: EMTRICITAB/RILPIVIRINE/TENOFOV 1 EACH TABLET PO SCH (07:02)
[2017-03-05] MEDS: NICOTINE POLACRILEX 2 MG GUM BUC PRN ×2 (07:37→10:13)
[2017-03-05] MEDS: hydrOXYzine PAMOATE 50 MG CAPSULE (FP) PO PRN (07:37)
[2017-03-05] MEDS: NAPROXEN 500 MG TABLET (FP) PO SCH ×2 (09:52→21:12)
[2017-03-05] MEDS: RANITIDINE HCL 150 MG TABLET (FP) PO SCH ×2 (09:52→21:11)
[2017-03-05] MEDS: PRENATAL VITAMINS W/ FOLIC ACID TABLET (FP) PO SCH (09:52)
[2017-03-05] MEDS: NICOTINE 14 MG/24 HOURS TOPICAL PATCH TD SCH (09:54)
[2017-03-05] MEDS: CLOTRIMAZOLE/BETAMET DIPROP TOPICAL CREAM 45 GM TUBE TP SCH ×2 (09:54→21:35)
[2017-03-05] MEDS: AMMONIUM LACTATE 12% LOTION 225 GM BOTTLE TP SCH ×2 (09:55→21:13)
[2017-03-05] MEDS: QUEtiapine FUMARATE 25 MG TABLET (FP) PO SCH (21:10)
[2017-03-05] MEDS: MIRTAZAPINE 15 MG TABLET (FP) PO SCH (21:10)
[2017-03-05] MEDS: THIAMINE HCL 100 MG TABLET (FP) PO SCH (21:11)
[2017-03-06] MEDS ORDERED: PT OWN MED DRAWER 7, Y5N ONE ×2 (05:35→08:17)
[2017-03-06] MEDS: hydrOXYzine PAMOATE 50 MG CAPSULE (FP) PO PRN ×2 (06:42→18:25)
[2017-03-06] MEDS: NICOTINE POLACRILEX 2 MG GUM BUC PRN ×2 (06:43→18:57)
[2017-03-06] MEDS: EMTRICITAB/RILPIVIRINE/TENOFOV 1 EACH TABLET PO SCH (07:02)
[2017-03-06] MEDS: MAGNESIUM HYDROX 2400MG/30ML ORAL SUSPENSION 30 ML CUP PO PRN (09:36)
[2017-03-06] MEDS: PRENATAL VITAMINS W/ FOLIC ACID TABLET (FP) PO SCH (09:36)
[2017-03-06] MEDS: RANITIDINE HCL 150 MG TABLET (FP) PO SCH ×2 (09:36→21:10)
[2017-03-06] MEDS: NICOTINE 14 MG/24 HOURS TOPICAL PATCH TD SCH (09:37)
[2017-03-06] MEDS: NAPROXEN 500 MG TABLET (FP) PO SCH ×2 (09:37→21:11)
[2017-03-06] MEDS: CLOTRIMAZOLE/BETAMET DIPROP TOPICAL CREAM 45 GM TUBE TP SCH ×2 (09:38→21:11)
[2017-03-06] MEDS: AMMONIUM LACTATE 12% LOTION 225 GM BOTTLE TP SCH ×2 (09:38→21:11)
[2017-03-06] MEDS: THIAMINE HCL 100 MG TABLET (FP) PO SCH (21:09)
[2017-03-06] MEDS: QUEtiapine FUMARATE 25 MG TABLET (FP) PO SCH (21:09)
[2017-03-06] MEDS: MIRTAZAPINE 15 MG TABLET (FP) PO SCH (21:09)
[2017-03-06] MEDS ORDERED: MAGNESIUM CITRATE 300 ML BOTTLE PO PRN (21:51)
[2017-03-07] MEDS ORDERED: PT OWN MED DRAWER 7, Y5N ONE ×4 (05:43→23:03)
[2017-03-07] MEDS: hydrOXYzine PAMOATE 50 MG CAPSULE (FP) PO PRN ×2 (06:46→21:10)
[2017-03-07] MEDS: NICOTINE POLACRILEX 2 MG GUM BUC PRN ×3 (06:47→17:36)
[2017-03-07] MEDS: EMTRICITAB/RILPIVIRINE/TENOFOV 1 EACH TABLET PO SCH (07:23)
[2017-03-07] MEDS: CLOTRIMAZOLE/BETAMET DIPROP TOPICAL CREAM 45 GM TUBE TP SCH ×2 (09:52→21:08)
[2017-03-07] MEDS: AMMONIUM LACTATE 12% LOTION 225 GM BOTTLE TP SCH ×2 (09:52→21:08)
[2017-03-07] MEDS: NICOTINE 14 MG/24 HOURS TOPICAL PATCH TD SCH (09:53)
[2017-03-07] MEDS: NAPROXEN 500 MG TABLET (FP) PO SCH ×2 (09:53→21:08)
[2017-03-07] MEDS: RANITIDINE HCL 150 MG TABLET (FP) PO SCH ×2 (09:54→21:08)
[2017-03-07] MEDS: PRENATAL VITAMINS W/ FOLIC ACID TABLET (FP) PO SCH (09:54)
--- NOTE | 2017-03-07 10:38 | PN ---
Psychiatric Progress Note Vital Signs: Vital Signs Period Temp Pulse Resp BP Sys/Olvera Pulse Ox Last 24 Hr 98.2 F 77 18-18 116/74 Date of Session: 03/07/17 Chief Complaint:: "Jerrod still very nervious and anxiety making me frustrated." HPI: Opioid,Alcohol,Cocaine and Cannabis dependence comorbid with Bipolar disorder. ROS: Unremarkable Current Medications: Active Medications Generic Name Dose Route Start Last Admin Trade Name Freq PRN Reason Stop Dose Admin Acetaminophen 650 mg 02/25/17 13:55 Tylenol - PO Q4H PRN FEVER OR PAIN Al Hydroxide/Mg Hydroxide 30 ml 02/25/17 13:55 Mylanta Oral Suspension - PO Q6H PRN DYSPEPSIA Buspirone HCl 30 mg 02/25/17 22:00 03/07/17 09:52 Buspar - PO 30 mg BID TENZIN Administration Clotrimazole 1 applic 03/01/17 12:00 03/07/17 09:52 Lotrisone Cream (Large Tube) - TP 1 applic BID TENZIN Administration Colloidal Oatmeal 1 applic 02/25/17 13:56 Aveeno Soap - TP DAILY PRN HYGEINE Diphenhydramine HCl 50 mg 02/25/17 13:55 Benadryl - PO HSMR1 PRN FOR ITCHING Emtricitabine/Rilpivirine/Tenofovir 1 each 03/02/17 17:15 03/07/17 07:23 Complera - PO 1 each DAILY@0800 TENZIN Administration Ergocalciferol 50,000 unit 03/03/17 10:00 03/03/17 09:55 Drisdol - PO 50,000 unit Th@1000 TENZIN Administration Eucalyptus/Menthol/Phenol/Sorbitol 1 each 02/25/17 13:55 Cepastat Lozenge - MM Q4H PRN SORE THROAT Guaifenesin 10 ml 02/25/17 13:55 Robitussin Dm - PO Q6H PRN COUGH Hydroxyzine Pamoate 50 mg 02/25/17 13:55 03/07/17 06:46 Vistaril - PO 50 mg Q4H PRN Administration AGITATION Lactic Acid 1 applic 02/25/17 14:00 03/07/17 09:52 Lac-Hydrin 12 TP 1 applic BID TENZIN Administration Loperamide HCl 4 mg 02/25/17 13:55 Imodium - PO Q6H PRN DIARRHEA Magnesium Citrate 300 ml 03/06/17 21:51 Citroma - PO 03/07/17 21:52 PRN PRN CONSTIPATION Magnesium Hydroxide 30 ml 02/25/17 13:55 03/06/17 09:36 Milk Of Magnesia - PO 30 ml DAILY PRN Administration CONSTIPATION Mirtazapine 15 mg 02/25/17 22:00 03/06/17 21:09 Remeron - PO 15 mg HS TENZIN Administration Naproxen 500 mg 03/02/17 22:00 03/07/17 09:53 Naprosyn - PO Not Given BID TENZIN Nicotine 14 mg 02/26/17 10:00 03/07/17 09:53 Nicoderm Patch - TD 14 mg DAILY TENZIN Administration Nicotine Polacrilex 2 mg 02/25/17 13:55 03/07/17 06:47 Nicorette Gum - BUC 2 mg Q2H PRN Administration NICOTINE REPLACEMENT RX Multivit/Folic Acid/Iron 1 tab 02/26/17 10:00 03/07/17 09:54 Vitamins (Sjr) - PO 1 tab DAILY TENZIN Administration Pseudoephedrine/Triprolidine 1 combo 02/25/17 13:55 Actifed - PO TID PRN NASAL CONGESTION Quetiapine Fumarate 25 mg 02/25/17 22:00 03/06/17 21:09 Seroquel - PO 25 mg HS TENZIN Administration Quetiapine Fumarate 25 mg 03/07/17 10:15 Seroquel - PO BID@1000,1400 TENZIN Ranitidine HCl 150 mg 03/02/17 22:00 03/07/17 09:54 Zantac - PO 150 mg BID TENZIN Administration Thiamine HCl 100 mg 02/25/17 22:00 03/06/17 21:09 Vitamin B1 - PO 100 mg HS TENZIN Administration Current Side Effect: No Lab tests ordered: No Lab tests reviewed: Yes Provider note:: Chart was revuewed,patient was seen in my office to address ongoing anxiety,frustration.propeties of [place] has been discussed with the patient including side effects,benefits and dose adjustment.Add Seroquel 25 mg po bid.Continue Seroquel 25 mg po hs and Remeron 15 mg po hs. supportive therapy has been provided. Total face to face time:: 30 Mental Status Exam - Mental Status Exam Alert and Oriented to: Time, Place, Person Cognitive Function: Grossly Intact Patient Appearance: Unkempt Mood: Anxious Affect: Mood Congruent, Labile Patient Behavior: Cooperative Speech Pattern: Clear Voice Loudness: Normal Thought Process: Goal Oriented Thought Disorder: Not Present Hallucinations: Denies Suicidal Ideation: Denies Homicidal Ideation: Denies Insight/Judgement: Fair Sleep: Fair, Difficulty falling asleep Appetite: Good Muscle strength/Tone: Normal Gait/Station: Normal Psychiatric Treatment Plan - Problem List (1) Bipolar disorder Current Visit: Yes Qualifiers: Most recent bipolar episode type: most recent episode unspecified type (2) Cannabis dependence Current Visit: Yes (3) Cocaine dependence Current Visit: Yes Qualifiers: Substance use status: uncomplicated Qualified Code(s): F14.20 - Cocaine dependence, uncomplicated; F14.20 - Cocaine dependence, uncomplicated; F14.20 - Cocaine dependence, uncomplicated (4) Nicotine dependence Current Visit: Yes Qualifiers: Nicotine product type: cigarettes Substance use status: in withdrawal Qualified Code(s): F17.213 - Nicotine dependence, cigarettes, with withdrawal; F17.213 - Nicotine dependence, cigarettes, with withdrawal (5) Alcohol dependence Current Visit: Yes (6) Opioid dependence Current Visit: Yes
[2017-03-07] MEDS: QUEtiapine FUMARATE 25 MG TABLET (FP) PO SCH ×3 (11:12→21:08)
[2017-03-07] MEDS ORDERED: QUEtiapine FUMARATE 25 MG TABLET (FP) PO SCH (17:00)
[2017-03-07] MEDS ORDERED: QUEtiapine FUMARATE 25 MG TABLET (FP) PO ONE (17:00)
[2017-03-07] MEDS: MIRTAZAPINE 15 MG TABLET (FP) PO SCH (21:07)
[2017-03-07] MEDS: THIAMINE HCL 100 MG TABLET (FP) PO SCH (21:07)
[2017-03-07] MEDS ORDERED: MICONAZOLE NITRATE 100 MG SUPP SUPP.VAG PV SCH (22:00)
[2017-03-08] MEDS ORDERED: PT OWN MED DRAWER 7, Y5N ONE ×2 (03:29→08:20)
[2017-03-08] MEDS: hydrOXYzine PAMOATE 50 MG CAPSULE (FP) PO PRN ×3 (06:19→21:10)
[2017-03-08] MEDS: NICOTINE POLACRILEX 2 MG GUM BUC PRN ×3 (06:20→21:11)
[2017-03-08] MEDS: EMTRICITAB/RILPIVIRINE/TENOFOV 1 EACH TABLET PO SCH (07:15)
[2017-03-08] MEDS: PRENATAL VITAMINS W/ FOLIC ACID TABLET (FP) PO SCH (09:58)
[2017-03-08] MEDS: AMMONIUM LACTATE 12% LOTION 225 GM BOTTLE TP SCH ×2 (09:59→21:09)
[2017-03-08] MEDS: RANITIDINE HCL 150 MG TABLET (FP) PO SCH ×2 (09:59→21:09)
[2017-03-08] MEDS: NICOTINE 14 MG/24 HOURS TOPICAL PATCH TD SCH (09:59)
[2017-03-08] MEDS: CLOTRIMAZOLE/BETAMET DIPROP TOPICAL CREAM 45 GM TUBE TP SCH ×2 (09:59→21:09)
[2017-03-08] MEDS: QUEtiapine FUMARATE 25 MG TABLET (FP) PO SCH ×3 (09:59→21:09)
[2017-03-08] MEDS: NAPROXEN 500 MG TABLET (FP) PO SCH (10:00)
[2017-03-08] MEDS ORDERED: NAPROXEN 500 MG TABLET (FP) PO PRN (10:51)
[2017-03-08] MEDS: metroNIDAZOLE 250 MG TABLET PO SCH ×2 (11:32→21:08)
[2017-03-08] MEDS: MIRTAZAPINE 15 MG TABLET (FP) PO SCH (21:08)
[2017-03-08] MEDS: THIAMINE HCL 100 MG TABLET (FP) PO SCH (21:08)
[2017-03-09] MEDS: NICOTINE POLACRILEX 2 MG GUM BUC PRN ×2 (06:32→18:12)
[2017-03-09] MEDS: hydrOXYzine PAMOATE 50 MG CAPSULE (FP) PO PRN ×2 (06:32→18:11)
[2017-03-09] MEDS: EMTRICITAB/RILPIVIRINE/TENOFOV 1 EACH TABLET PO SCH (07:00)
[2017-03-09] MEDS ORDERED: PT OWN MED DRAWER 7, Y5N ONE (08:30)
[2017-03-09] MEDS: NICOTINE 14 MG/24 HOURS TOPICAL PATCH TD SCH (09:58)
[2017-03-09] MEDS: PRENATAL VITAMINS W/ FOLIC ACID TABLET (FP) PO SCH (09:59)
[2017-03-09] MEDS: RANITIDINE HCL 150 MG TABLET (FP) PO SCH ×2 (09:59→21:09)
[2017-03-09] MEDS: QUEtiapine FUMARATE 25 MG TABLET (FP) PO SCH ×3 (09:59→21:09)
[2017-03-09] MEDS: metroNIDAZOLE 250 MG TABLET PO SCH ×2 (09:59→21:09)
[2017-03-09] MEDS: AMMONIUM LACTATE 12% LOTION 225 GM BOTTLE TP SCH ×2 (10:00→21:11)
[2017-03-09] MEDS: CLOTRIMAZOLE/BETAMET DIPROP TOPICAL CREAM 45 GM TUBE TP SCH ×2 (10:00→21:10)
[2017-03-09] MEDS: MIRTAZAPINE 15 MG TABLET (FP) PO SCH (21:09)
[2017-03-09] MEDS: THIAMINE HCL 100 MG TABLET (FP) PO SCH (21:09)
[2017-03-10] MEDS ORDERED: PT OWN MED DRAWER 7, Y5N ONE ×2 (02:56→08:32)
[2017-03-10] MEDS: NICOTINE POLACRILEX 2 MG GUM BUC PRN ×2 (06:29→13:17)
[2017-03-10] MEDS: hydrOXYzine PAMOATE 50 MG CAPSULE (FP) PO PRN ×2 (06:29→13:17)
[2017-03-10] MEDS: EMTRICITAB/RILPIVIRINE/TENOFOV 1 EACH TABLET PO SCH (07:29)
[2017-03-10] MEDS: metroNIDAZOLE 250 MG TABLET PO SCH ×2 (09:48→21:09)
[2017-03-10] MEDS: RANITIDINE HCL 150 MG TABLET (FP) PO SCH ×2 (09:48→21:09)
[2017-03-10] MEDS: ERGOCALCIFEROL (VITAMIN D2) 50,000 UNIT CAPSULE (FP) PO SCH (09:48)
[2017-03-10] MEDS: QUEtiapine FUMARATE 25 MG TABLET (FP) PO SCH ×3 (09:48→21:09)
[2017-03-10] MEDS: PRENATAL VITAMINS W/ FOLIC ACID TABLET (FP) PO SCH (09:48)
[2017-03-10] MEDS: AMMONIUM LACTATE 12% LOTION 225 GM BOTTLE TP SCH ×2 (09:49→21:10)
[2017-03-10] MEDS: NICOTINE 14 MG/24 HOURS TOPICAL PATCH TD SCH (09:49)
[2017-03-10] MEDS: CLOTRIMAZOLE/BETAMET DIPROP TOPICAL CREAM 45 GM TUBE TP SCH ×2 (09:52→21:10)
[2017-03-10] MEDS: THIAMINE HCL 100 MG TABLET (FP) PO SCH (21:09)
[2017-03-10] MEDS: MIRTAZAPINE 15 MG TABLET (FP) PO SCH (21:09)
[2017-03-11] MEDS ORDERED: PT OWN MED DRAWER 7, Y5N ONE ×4 (05:45→11:27)
[2017-03-11] MEDS: hydrOXYzine PAMOATE 50 MG CAPSULE (FP) PO PRN (06:36)
[2017-03-11] MEDS: NICOTINE POLACRILEX 2 MG GUM BUC PRN ×2 (06:37→09:59)
[2017-03-11] MEDS: EMTRICITAB/RILPIVIRINE/TENOFOV 1 EACH TABLET PO SCH (07:20)
[2017-03-11] MEDS: metroNIDAZOLE 250 MG TABLET PO SCH ×2 (09:56→21:08)
[2017-03-11] MEDS: RANITIDINE HCL 150 MG TABLET (FP) PO SCH ×2 (09:56→21:09)
[2017-03-11] MEDS: NICOTINE 14 MG/24 HOURS TOPICAL PATCH TD SCH (09:56)
[2017-03-11] MEDS: PRENATAL VITAMINS W/ FOLIC ACID TABLET (FP) PO SCH (09:56)
[2017-03-11] MEDS: QUEtiapine FUMARATE 25 MG TABLET (FP) PO SCH ×3 (09:56→21:09)
[2017-03-11] MEDS: AMMONIUM LACTATE 12% LOTION 225 GM BOTTLE TP SCH ×2 (09:57→21:10)
[2017-03-11] MEDS: CLOTRIMAZOLE/BETAMET DIPROP TOPICAL CREAM 45 GM TUBE TP SCH ×2 (09:57→21:10)
[2017-03-11] MEDS: QUEtiapine FUMARATE 25 MG TABLET (FP) PO PRN (17:54)
[2017-03-11] MEDS: THIAMINE HCL 100 MG TABLET (FP) PO SCH (21:09)
[2017-03-11] MEDS: MIRTAZAPINE 30 MG TABLET (FP) PO SCH (21:11)
[2017-03-12] MEDS ORDERED: PT OWN MED DRAWER 7, Y5N ONE (03:16)
[2017-03-12] MEDS: EMTRICITAB/RILPIVIRINE/TENOFOV 1 EACH TABLET PO SCH (07:08)
[2017-03-12] MEDS: NICOTINE POLACRILEX 2 MG GUM BUC PRN ×2 (07:10→14:33)
[2017-03-12] MEDS: QUEtiapine FUMARATE 25 MG TABLET (FP) PO PRN ×2 (07:10→18:42)
[2017-03-12] MEDS: metroNIDAZOLE 250 MG TABLET PO SCH ×2 (09:32→21:08)
[2017-03-12] MEDS: RANITIDINE HCL 150 MG TABLET (FP) PO SCH ×2 (09:33→21:08)
[2017-03-12] MEDS: hydrOXYzine PAMOATE 50 MG CAPSULE (FP) PO PRN ×3 (09:33→21:10)
[2017-03-12] MEDS: PRENATAL VITAMINS W/ FOLIC ACID TABLET (FP) PO SCH (09:33)
[2017-03-12] MEDS: NICOTINE 14 MG/24 HOURS TOPICAL PATCH TD SCH (09:33)
[2017-03-12] MEDS: AMMONIUM LACTATE 12% LOTION 225 GM BOTTLE TP SCH ×2 (09:34→21:09)
[2017-03-12] MEDS: CLOTRIMAZOLE/BETAMET DIPROP TOPICAL CREAM 45 GM TUBE TP SCH ×2 (09:34→21:09)
[2017-03-12] MEDS: QUEtiapine FUMARATE 25 MG TABLET (FP) PO SCH (21:08)
[2017-03-12] MEDS: MIRTAZAPINE 30 MG TABLET (FP) PO SCH (21:08)
[2017-03-12] MEDS: THIAMINE HCL 100 MG TABLET (FP) PO SCH (21:08)
[2017-03-13] MEDS ORDERED: PT OWN MED DRAWER 7, Y5N ONE ×2 (03:05→07:02)
[2017-03-13] MEDS: QUEtiapine FUMARATE 25 MG TABLET (FP) PO PRN (06:36)
[2017-03-13] MEDS: NICOTINE POLACRILEX 2 MG GUM BUC PRN ×2 (06:36→09:53)
[2017-03-13] MEDS: EMTRICITAB/RILPIVIRINE/TENOFOV 1 EACH TABLET PO SCH (07:00)
[2017-03-13] MEDS: metroNIDAZOLE 250 MG TABLET PO SCH ×2 (09:52→21:07)
[2017-03-13] MEDS: RANITIDINE HCL 150 MG TABLET (FP) PO SCH ×2 (09:52→21:08)
[2017-03-13] MEDS: hydrOXYzine PAMOATE 50 MG CAPSULE (FP) PO PRN ×2 (09:53→17:29)
[2017-03-13] MEDS: NICOTINE 14 MG/24 HOURS TOPICAL PATCH TD SCH (09:53)
[2017-03-13] MEDS: PRENATAL VITAMINS W/ FOLIC ACID TABLET (FP) PO SCH (09:53)
[2017-03-13] MEDS: CLOTRIMAZOLE/BETAMET DIPROP TOPICAL CREAM 45 GM TUBE TP SCH ×2 (09:54→21:09)
[2017-03-13] MEDS: AMMONIUM LACTATE 12% LOTION 225 GM BOTTLE TP SCH ×2 (09:54→21:09)
[2017-03-13] MEDS: MIRTAZAPINE 30 MG TABLET (FP) PO SCH (21:08)
[2017-03-13] MEDS: QUEtiapine FUMARATE 25 MG TABLET (FP) PO SCH (21:08)
[2017-03-13] MEDS: THIAMINE HCL 100 MG TABLET (FP) PO SCH (21:09)
[2017-03-14] MEDS ORDERED: PT OWN MED DRAWER 7, Y5N ONE ×4 (03:17→19:39)
[2017-03-14] MEDS: QUEtiapine FUMARATE 25 MG TABLET (FP) PO PRN (06:44)
[2017-03-14] MEDS: NICOTINE POLACRILEX 2 MG GUM BUC PRN ×2 (06:44→10:07)
[2017-03-14] MEDS: EMTRICITAB/RILPIVIRINE/TENOFOV 1 EACH TABLET PO SCH (08:10)
[2017-03-14] MEDS: metroNIDAZOLE 250 MG TABLET PO SCH ×2 (10:05→21:25)
[2017-03-14] MEDS: AMMONIUM LACTATE 12% LOTION 225 GM BOTTLE TP SCH ×2 (10:06→21:28)
[2017-03-14] MEDS: NICOTINE 14 MG/24 HOURS TOPICAL PATCH TD SCH (10:06)
[2017-03-14] MEDS: CLOTRIMAZOLE/BETAMET DIPROP TOPICAL CREAM 45 GM TUBE TP SCH ×2 (10:06→21:28)
[2017-03-14] MEDS: PRENATAL VITAMINS W/ FOLIC ACID TABLET (FP) PO SCH (10:06)
[2017-03-14] MEDS: RANITIDINE HCL 150 MG TABLET (FP) PO SCH ×2 (10:06→21:25)
[2017-03-14] MEDS: hydrOXYzine PAMOATE 50 MG CAPSULE (FP) PO PRN (10:07)
--- NOTE | 2017-03-14 14:25 | PN ---
Psychiatric Progress Note Vital Signs: Vital Signs Period Temp Pulse Resp BP Sys/Olvera Pulse Ox Last 24 Hr 98.2 F 84 18-18 106/72 Date of Session: 03/14/17 Chief Complaint:: " I feel anxious and I don't sleep at night." HPI: Patient is complaining of poor sleep at night.Otherwise hospital course remains unremarkable. ROS: Unremarkable. Current Medications: Active Medications Generic Name Dose Route Start Last Admin Trade Name Freq PRN Reason Stop Dose Admin Acetaminophen 650 mg 02/25/17 13:55 Tylenol - PO Q4H PRN FEVER OR PAIN Al Hydroxide/Mg Hydroxide 30 ml 02/25/17 13:55 Mylanta Oral Suspension - PO Q6H PRN DYSPEPSIA Clotrimazole 1 applic 03/01/17 12:00 03/14/17 10:06 Lotrisone Cream (Large Tube) - TP Not Given BID TENZIN Colloidal Oatmeal 1 applic 02/25/17 13:56 03/09/17 06:59 Aveeno Soap - TP 1 applic DAILY PRN Administration HYGEINE Emtricitabine/Rilpivirine/Tenofovir 1 each 03/02/17 17:15 03/14/17 08:10 Complera - PO 1 each DAILY@0800 TENZIN Administration Ergocalciferol 50,000 unit 03/03/17 10:00 03/10/17 09:48 Drisdol - PO 50,000 unit Th@1000 TENZIN Administration Eucalyptus/Menthol/Phenol/Sorbitol 1 each 02/25/17 13:55 Cepastat Lozenge - MM Q4H PRN SORE THROAT Guaifenesin 10 ml 02/25/17 13:55 Robitussin Dm - PO Q6H PRN COUGH Hydroxyzine Pamoate 50 mg 02/25/17 13:55 03/14/17 10:07 Vistaril - PO 50 mg Q4H PRN Administration AGITATION Lactic Acid 1 applic 02/25/17 14:00 03/14/17 10:06 Lac-Hydrin 12 TP Not Given BID TENZIN Loperamide HCl 4 mg 02/25/17 13:55 Imodium - PO Q6H PRN DIARRHEA Magnesium Hydroxide 30 ml 02/25/17 13:55 03/06/17 09:36 Milk Of Magnesia - PO 30 ml DAILY PRN Administration CONSTIPATION Metronidazole 500 mg 03/08/17 11:00 03/14/17 10:05 Flagyl - PO 500 mg BID TENZIN Administration Metronidazole 1 applic 03/14/17 22:00 Metrogel 0.75% Vaginal Gel - VG 03/18/17 22:01 HS TENZIN Mirtazapine 30 mg 03/11/17 22:00 03/13/17 21:08 Remeron - PO 30 mg HS TENZIN Administration Naproxen 500 mg 03/08/17 10:51 Naprosyn - PO BID PRN PAIN Nicotine 14 mg 02/26/17 10:00 03/14/17 10:06 Nicoderm Patch - TD 14 mg DAILY TENZIN Administration Nicotine Polacrilex 2 mg 02/25/17 13:55 03/14/17 10:07 Nicorette Gum - BUC 2 mg Q2H PRN Administration NICOTINE REPLACEMENT RX Multivit/Folic Acid/Iron 1 tab 02/26/17 10:00 03/14/17 10:06 Vitamins (Sjr) - PO 1 tab DAILY TENZIN Administration Pseudoephedrine/Triprolidine 1 combo 02/25/17 13:55 Actifed - PO TID PRN NASAL CONGESTION Quetiapine Fumarate 25 mg 02/25/17 22:00 03/13/17 21:08 Seroquel - PO 25 mg HS TENZIN Administration Quetiapine Fumarate 25 mg 03/11/17 15:16 03/14/17 06:44 Seroquel - PO 25 mg BID PRN Administration ANXIETY Ranitidine HCl 150 mg 03/02/17 22:00 03/14/17 10:06 Zantac - PO 150 mg BID TENZIN Administration Thiamine HCl 100 mg 02/25/17 22:00 03/13/17 21:09 Vitamin B1 - PO 100 mg HS TENZIN Administration Medication(s) Change(s): Seroquel is raised to 50 mg po at hs.Buspar schedule is modified as 20 mg po tid at patient's request.Side effects/benefits are discussed with the patient.She agrees with this careplan. Current Side Effect: No Lab tests ordered: No Lab tests reviewed: Yes Provider note:: Met with patient.Complaint of insomnia + request for buspar re- schedule : addressed.Principles of sleep hygiene are discussed.Patient is observed as adherent to treatment and well controlled.Stable mental status. Total face to face time:: 30 Mental Status Exam - Mental Status Exam Alert and Oriented to: Time, Place, Person Cognitive Function: Good Patient Appearance: Well Groomed Mood: Nervous, Hopeful Affect: Appropriate, Normal Range Patient Behavior: Cooperative Speech Pattern: Clear, Appropriate Voice Loudness: Normal Thought Process: Intact, Goal Oriented Thought Disorder: Not Present Hallucinations: Denies Suicidal Ideation: Denies Homicidal Ideation: Denies Insight/Judgement: Poor Sleep: Poorly, Difficulty falling asleep Appetite: Good Muscle strength/Tone: Normal Gait/Station: Normal Psychiatric Treatment Plan - Problem List (1) Alcohol dependence Current Visit: Yes (2) Cannabis dependence Current Visit: Yes (3) Cocaine dependence Current Visit: Yes Qualifiers: Substance use status: uncomplicated Qualified Code(s): F14.20 - Cocaine dependence, uncomplicated; F14.20 - Cocaine dependence, uncomplicated; F14.20 - Cocaine dependence, uncomplicated (4) Nicotine dependence Current Visit: Yes Qualifiers: Nicotine product type: cigarettes Substance use status: in withdrawal Qualified Code(s): F17.213 - Nicotine dependence, cigarettes, with withdrawal; F17.213 - Nicotine dependence, cigarettes, with withdrawal (5) Opioid dependence Current Visit: Yes (6) Bipolar disorder Current Visit: Yes Qualifiers: Most recent bipolar episode type: most recent episode unspecified type (7) HIV antibody positive Current Visit: Yes (8) Insomnia Current Visit: Yes
[2017-03-14] MEDS: MIRTAZAPINE 30 MG TABLET (FP) PO SCH (21:25)
[2017-03-14] MEDS: THIAMINE HCL 100 MG TABLET (FP) PO SCH (21:25)
[2017-03-14] MEDS: metroNIDAZOLE 0.75% VAGINAL GEL 70 GM TUBE VG SCH (21:26)
[2017-03-14] MEDS ORDERED: QUEtiapine FUMARATE 25 MG TABLET (FP) ONE (21:27)
[2017-03-14] MEDS: busPIRone HCL 10 MG TABLET (FP) PO SCH (21:28)
[2017-03-14] MEDS: QUEtiapine FUMARATE 50 MG TABLET PO SCH (21:29)
[2017-03-15] MEDS ORDERED: PT OWN MED DRAWER 7, Y5N ONE ×3 (05:36→21:07)
[2017-03-15] MEDS: busPIRone HCL 10 MG TABLET (FP) PO SCH ×3 (06:44→21:11)
[2017-03-15] MEDS: EMTRICITAB/RILPIVIRINE/TENOFOV 1 EACH TABLET PO SCH (07:03)
[2017-03-15] MEDS: CLOTRIMAZOLE/BETAMET DIPROP TOPICAL CREAM 45 GM TUBE TP SCH ×2 (10:03→21:13)
[2017-03-15] MEDS: AMMONIUM LACTATE 12% LOTION 225 GM BOTTLE TP SCH ×2 (10:03→21:13)
[2017-03-15] MEDS: NICOTINE 14 MG/24 HOURS TOPICAL PATCH TD SCH (10:03)
[2017-03-15] MEDS: metroNIDAZOLE 250 MG TABLET PO SCH (10:03)
[2017-03-15] MEDS: PRENATAL VITAMINS W/ FOLIC ACID TABLET (FP) PO SCH (10:04)
[2017-03-15] MEDS: RANITIDINE HCL 150 MG TABLET (FP) PO SCH ×2 (10:04→21:11)
[2017-03-15] MEDS: NICOTINE POLACRILEX 2 MG GUM BUC PRN ×2 (10:04→18:42)
[2017-03-15] MEDS: QUEtiapine FUMARATE 25 MG TABLET (FP) PO PRN (10:04)
[2017-03-15] MEDS: hydrOXYzine PAMOATE 50 MG CAPSULE (FP) PO PRN (18:41)
[2017-03-15] MEDS: THIAMINE HCL 100 MG TABLET (FP) PO SCH (21:11)
[2017-03-15] MEDS: MIRTAZAPINE 30 MG TABLET (FP) PO SCH (21:11)
[2017-03-15] MEDS: QUEtiapine FUMARATE 50 MG TABLET PO SCH (21:11)
[2017-03-15] MEDS: metroNIDAZOLE 0.75% VAGINAL GEL 70 GM TUBE VG SCH (21:13)
[2017-03-16] MEDS ORDERED: PT OWN MED DRAWER 7, Y5N ONE ×5 (03:22→22:34)
[2017-03-16] MEDS: EMTRICITAB/RILPIVIRINE/TENOFOV 1 EACH TABLET PO SCH (07:00)
[2017-03-16] MEDS: busPIRone HCL 10 MG TABLET (FP) PO SCH ×3 (07:00→21:04)
[2017-03-16] MEDS: QUEtiapine FUMARATE 25 MG TABLET (FP) PO PRN ×2 (07:00→18:57)
[2017-03-16] MEDS: NICOTINE POLACRILEX 2 MG GUM BUC PRN (07:01)
[2017-03-16] MEDS: PRENATAL VITAMINS W/ FOLIC ACID TABLET (FP) PO SCH (10:00)
[2017-03-16] MEDS: RANITIDINE HCL 150 MG TABLET (FP) PO SCH ×2 (10:00→21:04)
[2017-03-16] MEDS: NICOTINE 14 MG/24 HOURS TOPICAL PATCH TD SCH (10:01)
[2017-03-16] MEDS: AMMONIUM LACTATE 12% LOTION 225 GM BOTTLE TP SCH ×2 (10:02→21:06)
[2017-03-16] MEDS: CLOTRIMAZOLE/BETAMET DIPROP TOPICAL CREAM 45 GM TUBE TP SCH ×2 (10:02→21:06)
[2017-03-16] MEDS: QUEtiapine FUMARATE 50 MG TABLET PO SCH (21:04)
[2017-03-16] MEDS: THIAMINE HCL 100 MG TABLET (FP) PO SCH (21:04)
[2017-03-16] MEDS: MIRTAZAPINE 30 MG TABLET (FP) PO SCH (21:04)
[2017-03-16] MEDS: metroNIDAZOLE 0.75% VAGINAL GEL 70 GM TUBE VG SCH (21:06)
[2017-03-17] MEDS: busPIRone HCL 10 MG TABLET (FP) PO SCH ×3 (06:24→21:09)
[2017-03-17] MEDS: QUEtiapine FUMARATE 25 MG TABLET (FP) PO PRN ×2 (06:25→18:23)
[2017-03-17] MEDS: NICOTINE POLACRILEX 2 MG GUM BUC PRN ×2 (06:25→18:24)
[2017-03-17] MEDS: EMTRICITAB/RILPIVIRINE/TENOFOV 1 EACH TABLET PO SCH (07:02)
[2017-03-17] MEDS ORDERED: PT OWN MED DRAWER 7, Y5N ONE ×2 (07:58→21:08)
[2017-03-17] MEDS: RANITIDINE HCL 150 MG TABLET (FP) PO SCH ×2 (09:54→21:09)
[2017-03-17] MEDS: PRENATAL VITAMINS W/ FOLIC ACID TABLET (FP) PO SCH (09:54)
[2017-03-17] MEDS: ERGOCALCIFEROL (VITAMIN D2) 50,000 UNIT CAPSULE (FP) PO SCH (09:55)
[2017-03-17] MEDS: CLOTRIMAZOLE/BETAMET DIPROP TOPICAL CREAM 45 GM TUBE TP SCH ×2 (09:55→21:11)
[2017-03-17] MEDS: AMMONIUM LACTATE 12% LOTION 225 GM BOTTLE TP SCH ×2 (09:55→21:11)
[2017-03-17] MEDS: NICOTINE 14 MG/24 HOURS TOPICAL PATCH TD SCH (09:55)
[2017-03-17] MEDS: hydrOXYzine PAMOATE 50 MG CAPSULE (FP) PO PRN (09:56)
[2017-03-17] MEDS: MIRTAZAPINE 30 MG TABLET (FP) PO SCH (21:09)
[2017-03-17] MEDS: QUEtiapine FUMARATE 50 MG TABLET PO SCH (21:09)
[2017-03-17] MEDS: THIAMINE HCL 100 MG TABLET (FP) PO SCH (21:09)
[2017-03-17] MEDS: metroNIDAZOLE 0.75% VAGINAL GEL 70 GM TUBE VG SCH (21:10)
[2017-03-18] MEDS: busPIRone HCL 10 MG TABLET (FP) PO SCH (06:16)
[2017-03-18] MEDS: QUEtiapine FUMARATE 25 MG TABLET (FP) PO PRN (06:18)
[2017-03-18] MEDS ORDERED: PT OWN MED DRAWER 7, Y5N ONE ×2 (06:41→08:23)
[2017-03-18 07:05] VITALS: BP 117/78; PULSE 82; TEMP 98.1
[2017-03-18] MEDS: EMTRICITAB/RILPIVIRINE/TENOFOV 1 EACH TABLET PO SCH (07:27)
--- NOTE | 2017-03-18 08:53 | PN ---
Psychiatric Progress Note Vital Signs: Vital Signs Period Temp Pulse Resp BP Sys/Olvera Pulse Ox Last 24 Hr 98.1 F 82 18-18 117/78 Date of Session: 03/18/17 Current Medications: Active Medications Generic Name Dose Route Start Last Admin Trade Name Freq PRN Reason Stop Dose Admin Acetaminophen 650 mg 02/25/17 13:55 Tylenol - PO Q4H PRN FEVER OR PAIN Al Hydroxide/Mg Hydroxide 30 ml 02/25/17 13:55 Mylanta Oral Suspension - PO Q6H PRN DYSPEPSIA Buspirone HCl 20 mg 03/14/17 22:00 03/18/17 06:16 Buspar - PO 20 mg TID TENZIN Administration Clotrimazole 1 applic 03/01/17 12:00 03/17/17 21:11 Lotrisone Cream (Large Tube) - TP Not Given BID TENZIN Colloidal Oatmeal 1 applic 02/25/17 13:56 03/09/17 06:59 Aveeno Soap - TP 1 applic DAILY PRN Administration HYGEINE Emtricitabine/Rilpivirine/Tenofovir 1 each 03/02/17 17:15 03/18/17 07:27 Complera - PO 1 each DAILY@0800 TENZIN Administration Ergocalciferol 50,000 unit 03/03/17 10:00 03/17/17 09:55 Drisdol - PO 50,000 unit Th@1000 TENZIN Administration Eucalyptus/Menthol/Phenol/Sorbitol 1 each 02/25/17 13:55 Cepastat Lozenge - MM Q4H PRN SORE THROAT Guaifenesin 10 ml 02/25/17 13:55 Robitussin Dm - PO Q6H PRN COUGH Hydroxyzine Pamoate 50 mg 02/25/17 13:55 03/17/17 09:56 Vistaril - PO 50 mg Q4H PRN Administration AGITATION Lactic Acid 1 applic 02/25/17 14:00 03/17/17 21:11 Lac-Hydrin 12 TP Not Given BID TENZIN Loperamide HCl 4 mg 02/25/17 13:55 Imodium - PO Q6H PRN DIARRHEA Magnesium Hydroxide 30 ml 02/25/17 13:55 03/06/17 09:36 Milk Of Magnesia - PO 30 ml DAILY PRN Administration CONSTIPATION Mirtazapine 30 mg 03/11/17 22:00 03/17/17 21:09 Remeron - PO 30 mg HS TENZIN Administration Naproxen 500 mg 03/08/17 10:51 Naprosyn - PO BID PRN PAIN Nicotine 14 mg 02/26/17 10:00 03/17/17 09:55 Nicoderm Patch - TD 14 mg DAILY TENZIN Administration Nicotine Polacrilex 2 mg 02/25/17 13:55 03/17/17 18:24 Nicorette Gum - BUC 2 mg Q2H PRN Administration NICOTINE REPLACEMENT RX Multivit/Folic Acid/Iron 1 tab 02/26/17 10:00 03/17/17 09:54 Vitamins (Sjr) - PO 1 tab DAILY TENZIN Administration Pseudoephedrine/Triprolidine 1 combo 02/25/17 13:55 Actifed - PO TID PRN NASAL CONGESTION Quetiapine Fumarate 25 mg 03/11/17 15:16 03/18/17 06:18 Seroquel - PO 25 mg BID PRN Administration ANXIETY Quetiapine Fumarate 50 mg 03/14/17 22:00 03/17/17 21:09 Seroquel - PO 50 mg HS TENZIN Administration Ranitidine HCl 150 mg 03/02/17 22:00 03/17/17 21:09 Zantac - PO 150 mg BID TENZIN Administration Thiamine HCl 100 mg 02/25/17 22:00 03/17/17 21:09 Vitamin B1 - PO 100 mg HS TNEZIN Administration Provider note:: Going back to [place] where she has her family.[facility]. Total face to face time:: 30 Psychiatric Treatment Plan - Problem List (1) Bipolar disorder Current Visit: Yes Qualifiers: Most recent bipolar episode type: most recent episode unspecified type (2) Cannabis dependence Current Visit: Yes (3) Cocaine dependence Current Visit: Yes Qualifiers: Substance use status: uncomplicated Qualified Code(s): F14.20 - Cocaine dependence, uncomplicated; F14.20 - Cocaine dependence, uncomplicated; F14.20 - Cocaine dependence, uncomplicated (4) Nicotine dependence Current Visit: Yes Qualifiers: Nicotine product type: cigarettes Substance use status: in withdrawal Qualified Code(s): F17.213 - Nicotine dependence, cigarettes, with withdrawal; F17.213 - Nicotine dependence, cigarettes, with withdrawal (5) Alcohol dependence Current Visit: Yes (6) Opioid dependence Current Visit: Yes
[2017-03-18] MEDS: PRENATAL VITAMINS W/ FOLIC ACID TABLET (FP) PO SCH (09:50)
[2017-03-18] MEDS: NICOTINE 14 MG/24 HOURS TOPICAL PATCH TD SCH (09:50)
[2017-03-18] MEDS: RANITIDINE HCL 150 MG TABLET (FP) PO SCH (09:50)
[2017-03-18] MEDS: CLOTRIMAZOLE/BETAMET DIPROP TOPICAL CREAM 45 GM TUBE TP SCH (09:51)
[2017-03-18] MEDS: AMMONIUM LACTATE 12% LOTION 225 GM BOTTLE TP SCH (09:51)
== END 2017-03-18 09:53 | disposition home or self-care (01) | DRG 772 ==
LOC: YASAS 11:26 → Y3E 11:30
PROVIDERS: ADMIT Psychiatry & Neurology Psychiatry; ATTEND Psychiatry & Neurology Psychiatry
PROC: HZ42ZZZ Group Counseling for Substance Abuse Treatment, Cognitive-Behavioral (ICD-10-PCS; principal; 2017-02-25)
DX: F11.20 Opioid dependence, uncomplicated (principal); F10.20 Alcohol dependence, uncomplicated; F14.20 Cocaine dependence, uncomplicated; F12.20 Cannabis dependence, uncomplicated; F17.213 Nicotine dependence, cigarettes, with withdrawal; F31.9 Bipolar disorder, unspecified; Z21 Asymptomatic human immunodeficiency virus [HIV] infection status; G47.00 Insomnia, unspecified
CPT/HCPCS: 36415; 80053; 85025